=== PATIENT | female | born 1955 | race Hispanic/Latino ===

== ENCOUNTER → 2017-08-22 | Outpatient (CLI) | payer OTHER, MEDICARE ==
[~2017-08-22] MED LIST: ACET-2247 PO; AEC81 PO; ATOR20TA PO; CETI1TAB PO; CINA30 PO; DOCU-116 PO; ESOM20CA39 PO; FOLI0.8T22 PO; GLIP5TAB11 PO; LIDO30CR TP; METO-391 PO; SEVE800T7 PO
[2017-08-22 11:24] LABS: HEMOGLOBIN A1C 6.7 % (4.0-6.0)
[2017-08-22 11:38] LABS: ALBUMIN 3.6 g/dL (3.5-5.0); BILIRUBIN,TOTAL 0.7 mg/dL (0.2-1.0); POTASSIUM 5.1 mmol/L (3.5-5.1); THYROID STIMULATING HORMONE 10.98 uIU/mL (0.36-3.74); TOTAL PROTEIN, SERUM 9.1 g/dL (6.0-8.3)
== END | disposition home or self-care (01) ==
LOC: LAB 10:44
PROVIDERS: ATTEND Student in an Organized Health Care Education/Training Program
DX: I13.11 Hypertensive heart and chronic kidney disease without heart failure, with stage 5 chronic kidney disease, or end stage renal disease (principal); N18.9 Chronic kidney disease, unspecified; I50.9 Heart failure, unspecified; E03.9 Hypothyroidism, unspecified; E66.9 Obesity, unspecified; R79.89 Other specified abnormal findings of blood chemistry
CPT/HCPCS: 36415; 80053; 80061; 83036; 84443

== ENCOUNTER → 2018-02-01 | Outpatient (CLI) | payer OTHER ==
[~2018-02-01] VITALS: Ht 157.5 cm; Wt 79.8 kg
[~2018-02-01] MED LIST changes: +REGADENOSON 0.4 MG/5 ML PF SYG IVP SCH
== END | disposition home or self-care (01) ==
LOC: SHCH 08:41
PROVIDERS: ATTEND Internal Medicine Cardiovascular Disease
DX: I45.10 Unspecified right bundle-branch block (principal); I20.9 Angina pectoris, unspecified
CPT/HCPCS: 78452; 93017; 96374; A9500 ×2; J2785

== ENCOUNTER 2018-04-10 05:41 | Day surgery (SDC) | payer OTHER ==
[2018-04-06 17:09] VITALS: BP 141/65
[2018-04-06 17:16] LABS: BASOPHILS % (AUTO) 0.9 % (0.0-5.0); EOSINOPHILS % (AUTO) 2.9 % (0.0-8.0); HEMATOCRIT 29.7 % (36-48); LYMPHOCYTES % (AUTO) 16.2 % (21.0-51.0); MEAN CORPUSCULAR HEMOGLOBIN 30.8 pg (27.0-33.0); MEAN CORPUSCULAR HGB CONC 33.7 g/dL (32.0-36.0); MEAN CORPUSCULAR VOLUME 91.1 fL (79-99); MONOCYTES % (AUTO) 9.2 % (3.0-13.0); NEUTROPHILS % (AUTO) 70.8 % (40.0-77.0); PLATELET COUNT (AUTO) 114 K/uL (130-400); RED BLOOD CELL COUNT(AUTO) 3.26 MIL/uL (4.00-5.50); RED CELL DISTRIBUTION WIDTH 16.4 % (11.0-15.5); WHITE BLOOD COUNT (AUTO) 4.4 K/uL (4.8-10.8)
[2018-04-06 17:25] LABS: CREATININE 3.5 mg/dL (0.5-1.5); POTASSIUM 3.8 mmol/L (3.5-5.1)
[2018-04-06 17:28] LABS: INR 1.06 (0.85-1.15); PARTIAL THROMBOPLASTIN TIME 29.4 SEC (26.3-35.5); PROTHROMBIN TIME 11.1 SEC (9.6-11.6)
[~2018-04-10] VITALS: Ht 152.4 cm; Wt 79.6 kg
[2018-04-10] VITALS (10 sets, daily range): BP systolic 102–141; BP diastolic 51–74
[~2018-04-10 05:41] MED LIST changes: -ACET-2247 PO; +ATOR10TA69 PO; -ATOR20TA PO; +CALC-866 PO; -CETI1TAB PO; -DOCU-116 PO; -ESOM20CA39 PO; -FOLI0.8T22 PO; +FOLI1TAB85 PO; +ISOS60TA4 PO; +LEVO25TA54 PO; -LIDO30CR TP; -METO-391 PO; +METO25TA6 PO; +NITR4.9S5 TL; -REGADENOSON 0.4 MG/5 ML PF SYG IVP SCH
[2018-04-10] MEDS ORDERED: SODIUM CHLORIDE 0.9% 1000ML 1,000 ML IV ONE (06:24)
[2018-04-10] MEDS ORDERED: NITROGLYCERIN 5 MG/ML 10 ML VIAL IV ONE (07:28)
[2018-04-10] MEDS ORDERED: LIDOCAINE HCL 2% 20ML ONE (07:29)
[2018-04-10] MEDS ORDERED: IOHEXOL 350 MG/ML 100ML INFUS..BTL IV ONE (07:29)
[2018-04-10] MEDS ORDERED: SODIUM CHLORIDE 0.9% 1000ML 1,000 ML IV SCH (08:00)
[2018-04-10] MEDS ORDERED: MIDAZOLAM HCL 1 MG/ML 2ML VIAL ONE (08:16)
[2018-04-10] MEDS ORDERED: GLUCAGON 1MG KIT 1 MG ML IM PRN (09:00)
[2018-04-10] MEDS ORDERED: SODIUM CHLORIDE 0.9% 10 ML VIAL IVP SCH (09:00)
[2018-04-10] MEDS ORDERED: DEXTROSE 50%-WATER 50 ML DISP.SYRIN IV PRN (09:00)
[2018-04-10] MEDS ORDERED: INSULIN HUMULIN R 100 UNIT/ML 3ML SQ SCH (11:30)
== END 2018-04-10 13:45 | disposition home or self-care (01) ==
LOC: DAH 05:41
PROVIDERS: ATTEND Internal Medicine Cardiovascular Disease
DX: I25.10 Atherosclerotic heart disease of native coronary artery without angina pectoris (principal); I25.5 Ischemic cardiomyopathy; I21.3 ST elevation (STEMI) myocardial infarction of unspecified site; I34.0 Nonrheumatic mitral (valve) insufficiency; Z79.899 Other long term (current) drug therapy; I77.1 Stricture of artery; E11.22 Type 2 diabetes mellitus with diabetic chronic kidney disease; N18.6 End stage renal disease; Z99.2 Dependence on renal dialysis; R06.00 Dyspnea, unspecified; Z95.5 Presence of coronary angioplasty implant and graft; Z68.32 Body mass index [BMI] 32.0-32.9, adult; Z98.890 Other specified postprocedural states; E66.9 Obesity, unspecified; I10 Essential (primary) hypertension; I45.2 Bifascicular block; E11.59 Type 2 diabetes mellitus with other circulatory complications; R94.39 Abnormal result of other cardiovascular function study
CPT/HCPCS: 36415; 71045; 75625; 80048; 82948 ×2; 85025; 85610; 85730; 93005; 93458; A4606; C1760; C1894; J1644; J2250; J3490 ×2; J7030; Q9965 ×2; Q9967; 99156; 99157

== ENCOUNTER 2018-05-16 23:15 | Emergency (ER) | payer OTHER ==
[~2018-05-16 23:15] MED LIST changes: -METO25TA6 PO
[2018-05-17] LABS: BASOPHILS % (AUTO) 1.3 % (0.0-5.0); EOSINOPHILS % (AUTO) 3.3 % (0.0-8.0); HEMATOCRIT 30.6 % (36-48); LYMPHOCYTES % (AUTO) 16.7 % (21.0-51.0); MEAN CORPUSCULAR HEMOGLOBIN 31.5 pg (27.0-33.0); MEAN CORPUSCULAR HGB CONC 33.7 g/dL (32.0-36.0); MEAN CORPUSCULAR VOLUME 93.4 fL (79-99); MONOCYTES % (AUTO) 8.7 % (3.0-13.0); NUCLEATED RED BLOOD CELLS 0.1 % (0.0-0.19); PLATELET COUNT (AUTO) 107 K/uL (130-400); RED BLOOD CELL COUNT(AUTO) 3.27 MIL/uL (4.00-5.50); RED CELL DISTRIBUTION WIDTH 16.3 % (11.0-15.5); WHITE BLOOD COUNT (AUTO) 3.6 K/uL (4.8-10.8)
[2018-05-17 00:12] LABS: INR 1.04 (0.85-1.15); PARTIAL THROMBOPLASTIN TIME 27.1 SEC (26.3-35.5); PROTHROMBIN TIME 10.9 SEC (9.6-11.6)
[2018-05-17 01:16] LABS: ALBUMIN 3.6 g/dL (3.5-5.0); BILIRUBIN,TOTAL 0.7 mg/dL (0.2-1.0); CREATININE 4.4 mg/dL (0.5-1.5); POTASSIUM 3.6 mmol/L (3.5-5.1); TOTAL PROTEIN, SERUM 8.9 g/dL (6.0-8.3)
[2018-05-17] MEDS ORDERED: OCTYL 2-CYANOACRYLATE 1 EACH TP ONE ×2 (01:34→01:40)
== END 2018-05-17 02:47 | disposition home or self-care (01) ==
LOC: EDH 23:15
DX: T82.838A Hemorrhage due to vascular prosthetic devices, implants and grafts, initial encounter (principal); I12.0 Hypertensive chronic kidney disease with stage 5 chronic kidney disease or end stage renal disease; N18.6 End stage renal disease; E78.5 Hyperlipidemia, unspecified; I25.10 Atherosclerotic heart disease of native coronary artery without angina pectoris; Z99.2 Dependence on renal dialysis
CPT/HCPCS: 36415; 80053; 85025; 85610; 85730

== ENCOUNTER 2018-11-09 14:48 | Inpatient (IN) | payer MEDICARE, OTHER ==
[~2018-11-09] VITALS: Ht 154.9 cm; Wt 93.7 kg
[~2018-11-09 14:48] MED LIST changes: +HEPARIN SODIUM 1000UNIT/ML 10ML VIAL IV ONE
[2018-11-09] MEDS ORDERED: NITROGLYCERIN 1GM/1 INCH PACKET TD ONE (14:59)
[2018-11-09 15:10] LABS: BASOPHILS % (AUTO) 1.3 % (0.0-5.0); EOSINOPHILS % (AUTO) 3.2 % (0.0-8.0); HEMATOCRIT 29.8 % (36-48); LYMPHOCYTES % (AUTO) 9.6 % (21.0-51.0); MEAN CORPUSCULAR HEMOGLOBIN 30.2 pg (27.0-33.0); MEAN CORPUSCULAR HGB CONC 33.5 g/dL (32.0-36.0); MEAN CORPUSCULAR VOLUME 90.1 fL (79-99); MONOCYTES % (AUTO) 9.1 % (3.0-13.0); NEUTROPHILS % (AUTO) 76.8 % (40.0-77.0); PLATELET COUNT (AUTO) 108 K/uL (130-400); RED BLOOD CELL COUNT(AUTO) 3.31 MIL/uL (4.00-5.50); RED CELL DISTRIBUTION WIDTH 16.6 % (11.0-15.5); WHITE BLOOD COUNT (AUTO) 4.7 K/uL (4.8-10.8)
[2018-11-09 15:23] LABS: INR 1.11 (0.85-1.15); PARTIAL THROMBOPLASTIN TIME 29.4 SEC (26.3-35.5); PROTHROMBIN TIME 11.6 SEC (9.6-11.6)
[2018-11-09 15:27] LABS: CREATININE 6.7 mg/dL (0.5-1.5); POTASSIUM 4.3 mmol/L (3.5-5.1)
[2018-11-09 15:31] LABS: ALBUMIN 3.3 g/dL (3.5-5.0); BILIRUBIN,TOTAL 0.8 mg/dL (0.2-1.0); TOTAL PROTEIN, SERUM 8.1 g/dL (6.0-8.3)
[2018-11-09 15:39] LABS: B-TYPE NATRIURETIC PEPTIDE 1600 pg/mL (0-100)
[2018-11-09] MEDS ORDERED: HEPARIN SODIUM 5000UNIT/ML 1ML VIAL ONE (18:21)
[2018-11-09] MEDS ORDERED: HEPARIN 25000 UNITS/250 ML D5W 250 ML IV ONE (18:21)
[2018-11-09] MEDS ORDERED: ACETAMINOPHEN 325 MG TAB PO PRN (19:00)
[2018-11-09] MEDS ORDERED: ONDANSETRON HCL 4 MG/2 ML VIAL IV PRN (19:00)
[2018-11-09] MEDS ORDERED: MORPHINE SULFATE 2 MG/ML 1ML SYG IV PRN (19:00)
[2018-11-09] MEDS ORDERED: NITROGLYCERIN 0.4 MG SL TAB SL PRN (19:00)
[2018-11-09 20:49] LABS: CHOLESTEROL 108 mg/dL (<200); HDL CHOLESTEROL 51 mg/dL (35-85); LDL DIRECT 48 mg/dL (0-99); TRIGLYCERIDES 95 mg/dL (30-200)
[2018-11-09 20:51] LABS: HEMOGLOBIN A1C 6.7 % (4.0-6.0)
[2018-11-09] MEDS ORDERED: ATORVASTATIN CALCIUM 20 MG TABLET PO SCH (21:00)
[2018-11-09 23:00] VITALS: BP 129/60
[2018-11-10] MEDS ORDERED: ACET-66 PO (00:26)
[2018-11-10] MEDS ORDERED: CARV6.25 PO (00:26)
[2018-11-10] MEDS ORDERED: OLME20TA22 PO (00:26)
[2018-11-10] MEDS ORDERED: CETI-101 PO (00:26)
[2018-11-10 01:23] LABS: INR 1.13 (0.85-1.15); PROTHROMBIN TIME 11.8 SEC (9.6-11.6)
[2018-11-10] MEDS: METOPROLOL TARTRATE 25 MG TAB PO SCH ×2 (01:52→07:55)
[2018-11-10] MEDS ORDERED: HEPARIN SODIUM 5000UNIT/ML 1ML VIAL ONE (02:31)
[2018-11-10 03:00] VITALS: BP 115/63
[2018-11-10 07:53] VITALS: BP 130/59
[2018-11-10] MEDS: FAMOTIDINE/PF 20 MG/2 ML VIAL IV SCH (08:00)
[2018-11-10] MEDS ORDERED: ASPIRIN 325MG EC TAB 325 MG TABLET.DR PO SCH (09:00)
[2018-11-10 11:53] VITALS: BP 137/68
[2018-11-10] MEDS ORDERED: NITROGLYCERIN 4.1 GM SPRAY TL PRN (12:15)
[2018-11-10] MEDS ORDERED: NON-FORMULARY MEDICATION 1 EACH (Cetirizine HCl (Zyrtec) 10 MG) PO PRN (12:15)
[2018-11-10] MEDS ORDERED: ACETAMINOPHEN EXTRA STRENGTH 500 MG TABLET PO SCH (12:45)
--- NOTE | 2018-11-10 14:05 | NUR ---
DR. Dontae MOTLEY IN ROOM WITH PT. FOR CONSULT; PT.'S SON AT BEDSIDE.
[2018-11-10] MEDS ORDERED: PHARMACY COMMUNICATION MISC SCH (14:30)
--- NOTE | 2018-11-10 15:00 | NUR ---
PT. WITH PERSISTENT BLEEDING NOTED TO LEFT HAND SCAB AREA. PRESSURE APPLIED AND SECURED WITH ELASTOPLAST DUE TO HEPARIN INFUSION. NO FURTHER BLEEDING NOTED. PT.'S SON AT BEDSIDE. CALL LIGHT WITHIN REACH, VERBALIZED ABILITY TO USE.
[2018-11-10 15:17] VITALS: BP 124/46
[2018-11-10] MEDS: EPTIFIBATIDE 75MG/100ML BOTTLE 100 ML IV SCH (15:54)
[2018-11-10] MEDS: ASPIRIN 81 MG EC TAB PO SCH (16:11)
[2018-11-10] MEDS ORDERED: ACETAMINOPHEN EXTRA STRENGTH 500 MG TABLET PO PRN (16:15)
--- NOTE | 2018-11-10 16:28 | NUR ---
cm note met with patient and states resides at home with spouse, is independent with ambulation, but uses cane and walker occasionally as needed. no provider. pt goes to [facility]- dr hughes and spouse transports. pt states dc plan is back to same home setting. provided with [facility] agency on aging info, per pt requested some information on possible provider assists, states she will call AAA as needed. no dc needs at present, feels safe to return home. Addendum: 11/10/18 at 1631 by VLADIMIR CAMPUZANO CM Amended: Links added.
[2018-11-10] MEDS: CINACALCET HCL 30 MG TAB PO SCH (16:38)
[2018-11-10] MEDS: SEVELAMER HCL 800 MG TABLET PO SCH (16:39)
[2018-11-10] MEDS ORDERED: LOSARTAN 100 MG TABLET PO SCH (17:00)
[2018-11-10] MEDS ORDERED: CARVEDILOL 6.25 MG TABLET PO SCH (17:00)
--- NOTE | 2018-11-10 17:38 | NUR ---
NOTIFIED DR. Dontae MOTLEY VIA TELEPHONE RE:PREVIOUS EPISODE OF BLEEDING TO LEFT HAND; VERBALIZED UNDERSTANDING NO NEW ORDERS RECEIVED. STATES TO CONTINUE WITH HEPARIN AND INTEGRILIN PREVIOUSLY ORDERED.
[2018-11-10 20:00] VITALS: BP 128/87
[2018-11-10] MEDS: CHOLECALCIFEROL PO SCH (21:00)
[2018-11-10] MEDS: ATORVASTATIN CALCIUM 10 MG TABLET PO SCH (21:43)
[2018-11-10] MEDS: CARVEDILOL 12.5 MG TABLET PO SCH (21:43)
[2018-11-11] VITALS: BP 110/48
[2018-11-11] MEDS ORDERED: HEPARIN 25000 UNITS/250 ML D5W 250 ML IV ONE (03:47)
[2018-11-11 04:00] VITALS: BP 107/56
[2018-11-11] MEDS: EPTIFIBATIDE 75MG/100ML BOTTLE 100 ML IV SCH ×2 (04:11→22:56)
[2018-11-11 04:37] LABS: HEMATOCRIT 28.4 % (36-48); MEAN CORPUSCULAR HEMOGLOBIN 30.6 pg (27.0-33.0); MEAN CORPUSCULAR HGB CONC 33.7 g/dL (32.0-36.0); PLATELET COUNT (AUTO) 119 K/uL (130-400); RED BLOOD CELL COUNT(AUTO) 3.12 MIL/uL (4.00-5.50); RED CELL DISTRIBUTION WIDTH 16.8 % (11.0-15.5); WHITE BLOOD COUNT (AUTO) 4.3 K/uL (4.8-10.8)
[2018-11-11 05:10] LABS: PHOSPHORUS 8.6 mg/dL (2.5-4.9); POTASSIUM 4.9 mmol/L (3.5-5.1); THYROID STIMULATING HORMONE 13.78 uIU/mL (0.36-3.74)
[2018-11-11 05:12] LABS: CREATININE 8.6 mg/dL (0.5-1.5)
[2018-11-11] MEDS ORDERED: GLIPIZIDE 5 MG TABLET PO PRN (07:30)
[2018-11-11 08:18] VITALS: BP 100/51
[2018-11-11] MEDS: FOLIC ACID/VITAMIN B COMP W-C 1 MG CAP/TAB PO SCH (08:27)
[2018-11-11] MEDS: SEVELAMER HCL 800 MG TABLET PO SCH ×3 (08:29→16:48)
[2018-11-11] MEDS: ISOSORBIDE MONO 60 MG TAB.SR PO SCH (08:29)
[2018-11-11] MEDS: CARVEDILOL 12.5 MG TABLET PO SCH ×2 (08:29→21:09)
[2018-11-11] MEDS: LOSARTAN 100 MG TABLET PO SCH (08:29)
[2018-11-11] MEDS: FAMOTIDINE/PF 20 MG/2 ML VIAL IV SCH (08:30)
[2018-11-11] MEDS ORDERED: CETIRIZINE HCL 5 MG TABLET PO PRN (09:00)
[2018-11-11] MEDS ORDERED: LEVOTHYROXINE 25 MCG TABLET PO SCH (09:00)
[2018-11-11 12:03] VITALS: BP 113/55
[2018-11-11 15:41] VITALS: BP 120/58
--- NOTE | 2018-11-11 15:43 | NUR ---
DR. HERNANDEZ IN ROOM SPEAKING WITH PT. RE:PLAN OF CARE.
[2018-11-11] MEDS: ASPIRIN 81 MG EC TAB PO SCH (16:48)
[2018-11-11] MEDS: CINACALCET HCL 30 MG TAB PO SCH (16:48)
[2018-11-11 20:00] VITALS: BP 122/69
[2018-11-11] MEDS: CHOLECALCIFEROL PO SCH (21:00)
[2018-11-11] MEDS: ATORVASTATIN CALCIUM 10 MG TABLET PO SCH (21:08)
[2018-11-12] VITALS: BP 123/61
[2018-11-12 04:00] VITALS: BP 111/58
[2018-11-12 04:18] LABS: HEMATOCRIT 27.8 % (36-48); MEAN CORPUSCULAR HEMOGLOBIN 30.7 pg (27.0-33.0); MEAN CORPUSCULAR HGB CONC 33.9 g/dL (32.0-36.0); MEAN CORPUSCULAR VOLUME 90.5 fL (79-99); NUCLEATED RED BLOOD CELLS 0.1 % (0.0-0.19); PLATELET COUNT (AUTO) 106 K/uL (130-400); RED BLOOD CELL COUNT(AUTO) 3.07 MIL/uL (4.00-5.50); RED CELL DISTRIBUTION WIDTH 16.4 % (11.0-15.5); WHITE BLOOD COUNT (AUTO) 4.4 K/uL (4.8-10.8)
[2018-11-12 04:45] LABS: CREATININE 9.5 mg/dL (0.5-1.5)
--- NOTE | 2018-11-12 05:00 | NUR ---
HEPARIN DRIP 3000UNITS HEPARIN IV GIVEN PER PROTOCOL
[2018-11-12] MEDS ORDERED: HEPARIN SODIUM 5000UNIT/ML 1ML VIAL ONE (05:17)
[2018-11-12] MEDS: LEVOTHYROXINE 50 MCG TABLET PO SCH (05:22)
[2018-11-12 07:00] VITALS: BP 116/59
--- NOTE | 2018-11-12 08:00 | NUR ---
ASSESSMENT PT IS AAOX4 DENIES CP DENIES SOB DENIES NV NO COMPLAINTS RESTING IN BED. INTEGRILIN AND HEPARIN INFUSING ORDERED. CALL LIGHT WITHIN REACH.
[2018-11-12] MEDS: ISOSORBIDE MONO 60 MG TAB.SR PO SCH (08:24)
[2018-11-12] MEDS: LOSARTAN 100 MG TABLET PO SCH (08:24)
[2018-11-12] MEDS: FAMOTIDINE/PF 20 MG/2 ML VIAL IV SCH (08:24)
[2018-11-12] MEDS: FOLIC ACID/VITAMIN B COMP W-C 1 MG CAP/TAB PO SCH (08:24)
[2018-11-12] MEDS: SEVELAMER HCL 800 MG TABLET PO SCH ×3 (08:25→16:51)
[2018-11-12] MEDS: CARVEDILOL 12.5 MG TABLET PO SCH ×2 (08:25→21:56)
--- NOTE | 2018-11-12 09:30 | NUR ---
Vickey ARORA ROUNDED ORDERED TO STOP HEPARIN AND INTEGRILIN, DRIPS STOPPED.
[2018-11-12 11:00] VITALS: BP 99/51
--- NOTE | 2018-11-12 13:00 | NUR ---
STATUS SITTING UP IN CHAIR, PENDING DIALYSIS TODAY. DIALYSIS NURSES AWARE, ORDER RECEIVED FOR DIALYSIS TODAY.
[2018-11-12] MEDS ORDERED: PHARMACY COMMUNICATION MISC SCH (14:15)
--- NOTE | 2018-11-12 15:01 | NUR ---
RD Notification Pt admitted for chest pain. Pt Hx of ESRD on HD, DM. Pt tolerating Renal Dialysis diet at this time with no report of GI distress and PO intake at 100%. Pt reports food preferences but has no known food allergies. RD with attempt for Dialysis and Diabetes diet education, however Pt denies need for diet education and sees Dialysis diet attention regularly. Pt monitored labs: Na 131, Cl 90, BUN 59, Cr 9.5, GFR 4, Glu 125, Ca 7.9, P 8.6, Alb 3.3, A1C 6.7. RD to continue to monitor. Please notify as additional nutrition concerns arise. Thank you. Addendum: 11/12/18 at [address] Amended: Links added.
--- NOTE | 2018-11-12 15:22 | NUR ---
DIALYSIS AT BEDSIDE
[2018-11-12 16:00] VITALS: BP 113/56
[2018-11-12] MEDS ORDERED: SODIUM CHLORIDE 0.9% 1000ML 1,000 ML IV PRN (16:30)
[2018-11-12] MEDS ORDERED: ACETAMINOPHEN 325 MG TAB PO PRN (16:30)
[2018-11-12] MEDS ORDERED: 0.9% SODIUM CHLORIDE 1000 ML IV BAG IV PRN (16:30)
[2018-11-12] MEDS: CINACALCET HCL 30 MG TAB PO SCH (16:51)
[2018-11-12] MEDS: ASPIRIN 81 MG EC TAB PO SCH (16:51)
--- NOTE | 2018-11-12 18:00 | NUR ---
DIALYSIS COMPLETION PATIENT STATES SHE FEELS MINIMAL CP, GAVE NITRO SL, PLACED ON O2 2LPM. BREATHING PATTERN IS EVEN AND UNLABORED. SBP 101. HR VIA TELE SR 77.
--- NOTE | 2018-11-12 18:07 | NUR ---
CHEST PAIN RELIEVED NO COMPLAINTS
[2018-11-12 19:29] VITALS: BP 119/56
[2018-11-12] MEDS: CHOLECALCIFEROL PO SCH (21:00)
[2018-11-12] MEDS: ATORVASTATIN CALCIUM 10 MG TABLET PO SCH (21:55)
[2018-11-12] MEDS: EPOETIN ALFA 10,000 UNIT/ML VIAL SQ NR (21:56)
[2018-11-13] VITALS (12 sets, daily range): BP systolic 96–117; BP diastolic 44–61
[2018-11-13 03:58] LABS: BASOPHILS % (AUTO) 1.2 % (0.0-5.0); EOSINOPHILS % (AUTO) 4.6 % (0.0-8.0); HEMATOCRIT 26.3 % (36-48); LYMPHOCYTES % (AUTO) 14.5 % (21.0-51.0); MEAN CORPUSCULAR HEMOGLOBIN 30.1 pg (27.0-33.0); MEAN CORPUSCULAR VOLUME 91.2 fL (79-99); MONOCYTES % (AUTO) 11.6 % (3.0-13.0); NEUTROPHILS % (AUTO) 68.1 % (40.0-77.0); PLATELET COUNT (AUTO) 111 K/uL (130-400); RED BLOOD CELL COUNT(AUTO) 2.88 MIL/uL (4.00-5.50); RED CELL DISTRIBUTION WIDTH 15.8 % (11.0-15.5); WHITE BLOOD COUNT (AUTO) 4.3 K/uL (4.8-10.8)
[2018-11-13 04:09] LABS: INR 1.09 (0.85-1.15); PROTHROMBIN TIME 11.4 SEC (9.6-11.6)
[2018-11-13 04:31] LABS: ALBUMIN 2.9 g/dL (3.5-5.0); CREATININE 6.7 mg/dL (0.5-1.5); PHOSPHORUS 6.5 mg/dL (2.5-4.9); POTASSIUM 4.3 mmol/L (3.5-5.1)
--- NOTE | 2018-11-13 06:00 | NUR ---
ORDERS SPOKE TO DR Ad SCANLON AT [id number]. VERBAL ORDERS FOR [facility] FOR 0711/13/18. PATIENT HAD A 5 SECOND PAUSE DURING THE NIGHT. PATIENT DID NOT HAVE SOB OR CHEST PAIN ALONG WITH PAUSE. DID FEEL MILD WEAKNESS. WILL NOTIFY GHISLAINE BEFORE HEART CATH.
[2018-11-13] MEDS: LEVOTHYROXINE 50 MCG TABLET PO SCH (06:24)
[2018-11-13] MEDS: ISOSORBIDE MONO 60 MG TAB.SR PO SCH (07:04)
[2018-11-13] MEDS: FOLIC ACID/VITAMIN B COMP W-C 1 MG CAP/TAB PO SCH (07:04)
[2018-11-13] MEDS: LOSARTAN 100 MG TABLET PO SCH (07:04)
[2018-11-13] MEDS: CARVEDILOL 12.5 MG TABLET PO SCH ×2 (07:04→21:44)
[2018-11-13] MEDS: SEVELAMER HCL 800 MG TABLET PO SCH ×3 (07:04→16:16)
[2018-11-13] MEDS ORDERED: IOHEXOL 350 MG/ML 100ML INFUS..BTL IV ONE (07:12)
[2018-11-13] MEDS ORDERED: LIDOCAINE HCL 2% 20ML ONE (07:12)
[2018-11-13] MEDS ORDERED: NITROGLYCERIN 5 MG/ML 10 ML VIAL IV ONE (07:12)
--- NOTE | 2018-11-13 07:20 | NUR ---
ASSESSMENT PT IS AAOX4 DENIES CP DENIES SOB DENIES NV. NO COMPLAINTS, DOWN VIA BED TO [facility] WITH [employer]IP [employer]INE SUPERVISOR STAFF.
[2018-11-13] MEDS: FAMOTIDINE/PF 20 MG/2 ML VIAL IV SCH (07:32)
[2018-11-13] MEDS ORDERED: IOHEXOL-350 50ML VIAL IV ONE (07:45)
[2018-11-13] MEDS ORDERED: MIDAZOLAM HCL 1 MG/ML 2ML VIAL ONE (08:14)
[2018-11-13] MEDS ORDERED: CLOPIDOGREL BISULFATE 75 MG TAB PO SCH (09:00)
--- NOTE | 2018-11-13 09:30 | NUR ---
RETURNED FROM [facility] TO ROOM PT IS RESTING, BREATHING PATTERN IS EVEN AND UNLABORED. RIGHT GROIN SOFT DRESSING INTACT. NO VISIBLE SIGNS OF DISTRESS NOTED.
--- NOTE | 2018-11-13 13:28 | NUR ---
BEDREST COMPLETED RIGHT GROIN REMAINS CLEAN DRY AND INTACT. NO OOZING NO HEMATOMA NOTED. FAMILY IS AT BEDSIDE, CALL LIGHT WITHIN REACH.
--- NOTE | 2018-11-13 14:26 | NUR ---
PRE OP AND POST OP BOOKLETS GIVEN TO PATIENT AND SON PENDING DR NÚÑEZ TO COME ROUND AND SEE PATIENT
[2018-11-13 15:04] LABS: HEMOGLOBIN A1C 6.6 % (4.0-6.0)
[2018-11-13] MEDS: CINACALCET HCL 30 MG TAB PO SCH (16:16)
--- NOTE | 2018-11-13 17:55 | NUR ---
DR NÚÑEZ ROUNDED CABG CONSENT OBTAINED. REQUESTED DIALYSIS TREATMENT TONIGHT WITH PLAN FOR AM CABG IF OK WITH DR HERNANDEZ, DR HERNANDEZ NOTIFIED AND IS OK WITH DIALYSIS TONIGHT. DIALYSIS NURSE AWARE.
[2018-11-13] MEDS: CHOLECALCIFEROL PO SCH (21:00)
[2018-11-13] MEDS: ATORVASTATIN CALCIUM 10 MG TABLET PO SCH (21:44)
--- NOTE | 2018-11-13 22:04 | NUR ---
CALLED DR NÚÑEZ AT [phone], WAS INFORMED OF THE PATIENT'S ANTIBODIES IN BLOOD. PATIENT'S BLOOD SENT IS BEING SENT TO [place] FOR IDENTIFICATION OF ANTIBODIES. DR NÚÑEZ IS IN AGREEMENT WITH USING 0- BLOOD FOR TRANSFUSION WITHOUT IDENTIFICATION OF ANTIBODIES. SURGEON ORDERED HEMATOLOGY TO BE CONSULTED IN REGARDS TO REPERCUSSIONS OF USING O- BLOOD WITHOUT THE IDENTIFICATION OF ANTIBODIES. DR LACKEY WAS CONTACTED AT [phone] AND SITUATION WAS EXPLAINED. PATIENT ADDED TO [facility] SO MD COULD HAVE ACCESS TO PATIENT CHART. [facility] WOULD MAKE RECOMMENDATIONS ONCE CHART WAS REVIEWED. DR NÚÑEZ WAS INFORMED OF DR LACKEY'S ACTIONS. DR NÚÑEZ WAS GIVEN DR LACKEY'S PHONE NUMBER TO DISCUSS SITUATION. AWAITING RESPONSE FROM BOTH PHYSICIANS TO PROCEED WITH CABG IN AM.
--- NOTE | 2018-11-13 22:45 | NUR ---
PER SURGEON MARCO WILL NOT PROCEED WITH CABG UNTIL BLOOD RESULTS HAVE BEEN RECEIVED
[2018-11-14 01:06] VITALS: BP 96/49
[2018-11-14 04:32] LABS: HEMATOCRIT 27.7 % (36-48); MEAN CORPUSCULAR HEMOGLOBIN 30.8 pg (27.0-33.0); MEAN CORPUSCULAR HGB CONC 33.6 g/dL (32.0-36.0); MEAN CORPUSCULAR VOLUME 91.7 fL (79-99); PLATELET COUNT (AUTO) 99 K/uL (130-400); RED BLOOD CELL COUNT(AUTO) 3.02 MIL/uL (4.00-5.50); RED CELL DISTRIBUTION WIDTH 16.4 % (11.0-15.5); WHITE BLOOD COUNT (AUTO) 5.3 K/uL (4.8-10.8)
[2018-11-14 04:40] LABS: INR 1.1 (0.85-1.15); PARTIAL THROMBOPLASTIN TIME 28.5 SEC (26.3-35.5); PROTHROMBIN TIME 11.5 SEC (9.6-11.6)
[2018-11-14 04:47] VITALS: BP 94/42
[2018-11-14] MEDS: LEVOTHYROXINE 50 MCG TABLET PO SCH (06:13)
[2018-11-14 07:00] VITALS: BP 101/46
--- NOTE | 2018-11-14 07:35 | NUR ---
ASSESSMENT ENCOUNTERED PT A&OX3, CALM COOPERATIVE AND DOES NOT APPEAR TO BE IN ANY DISTRESS NOR ANY NEURO DEFICITS PRESENT. PT DENIES PAIN, SOB, NAUSEA. RT GROIN SOFT NONTENDER WITH NO OOZING OR HEMATOMA PRESENT. DP/PT PULSES PALPABLE. PT DOES HAVE REDNESS AND TENDERNESS PRESENT TO RT CALF. PT IS AMBULATORY, GAIT SLOW BUT STEADY WITH ASSIST. CALL LIGHT WITHIN REACH.
[2018-11-14] MEDS: SEVELAMER HCL 800 MG TABLET PO SCH ×3 (07:57→17:57)
[2018-11-14 08:11] LABS: HEPATITIS A ANTIBODY IGM Negative (Negative); HEPATITIS B CORE IGM Negative (Negative); HEPATITIS Bs ANTIGEN SCREEN P Negative (Negative)
[2018-11-14] MEDS: LOSARTAN 100 MG TABLET PO SCH (09:00)
[2018-11-14] MEDS: ISOSORBIDE MONO 60 MG TAB.SR PO SCH (09:00)
[2018-11-14 11:00] VITALS: BP 104/51
[2018-11-14] MEDS: LINEZOLID 600 MG/ISO-OSM 300 ML IV SCH ×2 (13:14→23:45)
[2018-11-14] MEDS: FAMOTIDINE/PF 20 MG/2 ML VIAL IV SCH (13:14)
[2018-11-14] MEDS: FOLIC ACID/VITAMIN B COMP W-C 1 MG CAP/TAB PO SCH (13:15)
[2018-11-14] MEDS: CARVEDILOL 12.5 MG TABLET PO SCH ×2 (13:16→23:44)
[2018-11-14 16:00] VITALS: BP 91/42
[2018-11-14] MEDS: ASPIRIN 81 MG EC TAB PO SCH (17:57)
[2018-11-14] MEDS: CINACALCET HCL 30 MG TAB PO SCH (17:57)
[2018-11-14 19:44] VITALS: BP 104/44
[2018-11-14] MEDS: CHOLECALCIFEROL PO SCH (21:00)
[2018-11-14] MEDS: EPOETIN ALFA 10,000 UNIT/ML VIAL SQ NR (21:00)
[2018-11-14] MEDS: ATORVASTATIN CALCIUM 10 MG TABLET PO SCH (23:44)
[2018-11-15] VITALS (7 sets, daily range): BP systolic 97–124; BP diastolic 44–60
[2018-11-15 04:29] LABS: % IRON SATURATION 24.8 % (22-44)
[2018-11-15] MEDS: LEVOTHYROXINE 50 MCG TABLET PO SCH (06:23)
[2018-11-15 07:26] LABS: HEMATOCRIT 27.1 % (36-48); MEAN CORPUSCULAR HEMOGLOBIN 30.6 pg (27.0-33.0); MEAN CORPUSCULAR HGB CONC 33.3 g/dL (32.0-36.0); MEAN CORPUSCULAR VOLUME 91.8 fL (79-99); PLATELET COUNT (AUTO) 103 K/uL (130-400); RED BLOOD CELL COUNT(AUTO) 2.95 MIL/uL (4.00-5.50); WHITE BLOOD COUNT (AUTO) 6.2 K/uL (4.8-10.8)
[2018-11-15] MEDS: SEVELAMER HCL 800 MG TABLET PO SCH ×3 (07:35→17:00)
[2018-11-15 07:36] LABS: CREATININE 6.3 mg/dL (0.5-1.5); POTASSIUM 4.4 mmol/L (3.5-5.1)
--- NOTE | 2018-11-15 07:45 | NUR ---
ASSESSMENT ENCOUNTERED PT ASLEEP BUT AROUSEABLE, A&OX3, CALM COOPERATIVE AND DOES NOT APPEAR TO BE IN ANY DISTRESS NOR ANY NEURO DEFICITS PRESENT. PT DENIES PAIN, SOB, NAUSEA. LAVA WITH BRUIT/THRILL PRESENT. RT GROIN SOFT NONTENDER WITH NO OOZING OR HEMATOMA PRESENT. DP/PT PULSES PALPABLE. PT DOES HAVE REDNESS AND TENDERNESS PRESENT TO RT CALF. PT IS AMBULATORY, GAIT SLOW BUT STEADY WITH ASSIST. CALL LIGHT WITHIN REACH.
[2018-11-15] MEDS: CARVEDILOL 12.5 MG TABLET PO SCH ×2 (09:00→22:21)
[2018-11-15] MEDS: ISOSORBIDE MONO 60 MG TAB.SR PO SCH (09:00)
[2018-11-15] MEDS: LOSARTAN 100 MG TABLET PO SCH (09:00)
[2018-11-15] MEDS ORDERED: ASCORBIC ACID 500 MG TAB PO SCH (09:55)
[2018-11-15] MEDS ORDERED: COMPOUND IV MISC 1 EACH IVSOLN MISC PRN (10:00)
[2018-11-15] MEDS: FOLIC ACID/VITAMIN B COMP W-C 1 MG CAP/TAB PO SCH (10:40)
[2018-11-15] MEDS: IRON SUCROSE COMPLEX 100 MG in SODIUM CHLORIDE 0.9% 50 ML IV SCH (10:40)
[2018-11-15] MEDS: FAMOTIDINE/PF 20 MG/2 ML VIAL IV SCH (10:41)
[2018-11-15] MEDS: ASPIRIN 81 MG EC TAB PO SCH (10:41)
[2018-11-15] MEDS: LINEZOLID 600 MG/ISO-OSM 300 ML IV SCH ×2 (12:05→22:20)
[2018-11-15] MEDS ORDERED: PHARMACY COMMUNICATION MISC SCH (13:00)
[2018-11-15] MEDS: CHOLECALCIFEROL PO SCH (21:00)
[2018-11-15] MEDS: CINACALCET HCL 30 MG TAB PO SCH (22:20)
[2018-11-15] MEDS: DEXAMETHASONE 10MG/ML 1ML VIAL 40 MG in SODIUM CHLORIDE 0.9% 50 ML IV SCH (22:20)
[2018-11-15] MEDS: ATORVASTATIN CALCIUM 10 MG TABLET PO SCH (22:21)
[2018-11-16] VITALS (29 sets, daily range): BP systolic 81–178; BP diastolic 32–85
[2018-11-16 04:21] LABS: HEMATOCRIT 30.9 % (36-48); MEAN CORPUSCULAR HEMOGLOBIN 30.7 pg (27.0-33.0); MEAN CORPUSCULAR HGB CONC 33.4 g/dL (32.0-36.0); MEAN CORPUSCULAR VOLUME 91.9 fL (79-99); PLATELET COUNT (AUTO) 102 K/uL (130-400); RED BLOOD CELL COUNT(AUTO) 3.36 MIL/uL (4.00-5.50); RED CELL DISTRIBUTION WIDTH 16.9 % (11.0-15.5); WHITE BLOOD COUNT (AUTO) 6.2 K/uL (4.8-10.8)
[2018-11-16 04:34] LABS: ALBUMIN 3.2 g/dL (3.5-5.0); BILIRUBIN,TOTAL 0.7 mg/dL (0.2-1.0); CREATININE 4.9 mg/dL (0.5-1.5); PHOSPHORUS 4.3 mg/dL (2.5-4.9); POTASSIUM 4.6 mmol/L (3.5-5.1); TOTAL PROTEIN, SERUM 7.9 g/dL (6.0-8.3)
[2018-11-16] MEDS: LEVOTHYROXINE 50 MCG TABLET PO SCH (06:29)
[2018-11-16] MEDS: CARVEDILOL 12.5 MG TABLET PO SCH (07:22)
[2018-11-16] MEDS ORDERED: NITROGLYCERIN 50 MG/D5% WATER 1 BOT ONE (07:27)
[2018-11-16] MEDS: CEFAZOLIN SODIUM 1 GM VIAL IVP PRN ×2 (07:44→08:40)
[2018-11-16] MEDS: SEVELAMER HCL 800 MG TABLET PO SCH ×3 (08:00→14:28)
[2018-11-16] MEDS ORDERED: DEXAMETHASONE SOD PHOSPHATE 10MG/ML 1ML VIAL ONE (08:37)
[2018-11-16] MEDS ORDERED: LIDOCAINE PF 2% 5ML ABBOJECT ONE ×2 (08:37→08:41)
[2018-11-16] MEDS ORDERED: SUCCINYLCHOLINE 200MG/10ML SYR ONE (08:38)
[2018-11-16] MEDS ORDERED: ONDANSETRON HCL 4 MG/2 ML VIAL ONE (08:38)
[2018-11-16] MEDS ORDERED: MIDAZOLAM HCL 1 MG/ML 2ML VIAL ONE (08:38)
[2018-11-16] MEDS ORDERED: GLYCOPYRROLATE 1 MG/5 ML SYRINGE ONE (08:38)
[2018-11-16] MEDS ORDERED: PROPOFOL 10 MG/ML 20ML VIAL IV ONE ×2 (08:38→08:41)
[2018-11-16] MEDS ORDERED: NEOSTIGMINE 5MG/5ML SYR IV ONE (08:38)
[2018-11-16] MEDS ORDERED: FENTANYL CITRATE PF 50 MCG/1 ML 2ML VIAL ONE (08:39)
[2018-11-16] MEDS ORDERED: ROCURONIUM 10MG/1ML SYR 10 MG/ML ML ONE ×2 (08:39→08:42)
[2018-11-16] MEDS ORDERED: SODIUM BICARB 50MEQ 50ML VIAL ONE (08:41)
[2018-11-16] MEDS ORDERED: AMINOCAPROIC ACID 250 MG/ML 20 ML VIAL IV ONE (08:41)
[2018-11-16] MEDS ORDERED: NOREPINEPHRINE BITARTRATE 1 MG/1 ML ML IV ONE (08:41)
[2018-11-16] MEDS ORDERED: PROTAMINE SULFATE 10 MG/ML 25ML VIAL IV ONE (08:41)
[2018-11-16] MEDS ORDERED: ESMOLOL HCL 10 MG/ML 10 ML VIAL ONE (08:41)
[2018-11-16] MEDS ORDERED: HEPARIN SODIUM 1000UNIT/ML 10ML VIAL ONE (08:41)
[2018-11-16] MEDS ORDERED: EPINEPHRINE 1 MG/ML AMPULE ONE (08:41)
[2018-11-16] MEDS ORDERED: FENTANYL CITRATE PF 50 MCG/1 ML 20ML VIAL IJ ONE (08:42)
[2018-11-16] MEDS: FAMOTIDINE/PF 20 MG/2 ML VIAL IV SCH (09:00)
[2018-11-16] MEDS: IRON SUCROSE COMPLEX 100 MG in SODIUM CHLORIDE 0.9% 50 ML IV SCH (09:00)
[2018-11-16] MEDS: FOLIC ACID/VITAMIN B COMP W-C 1 MG CAP/TAB PO SCH (09:00)
[2018-11-16] MEDS: ASPIRIN 81 MG EC TAB PO SCH (09:00)
[2018-11-16 09:26] LABS: ABG BASE EXCESS 0.4 mmol/L (-2.0-3.0); ABG OXYGEN SATURATION 99.5 % (95.0-99.0); ABG PCO2 30 mmHg (32-45)
[2018-11-16] MEDS ORDERED: PAPAVERINE HCL 30 MG/ML 2ML VIAL ONE (09:28)
[2018-11-16] MEDS ORDERED: BACITRACIN 50,000 UNIT VIAL ONE (09:28)
[2018-11-16] MEDS ORDERED: AMIODARONE HCL 50 MG/ML 3 ML VIAL ONE (10:03)
[2018-11-16] MEDS: LINEZOLID 600 MG/ISO-OSM 300 ML IV SCH ×2 (11:15→22:41)
[2018-11-16 11:25] LABS: ABG BASE EXCESS 1.8 mmol/L (-2.0-3.0); ABG HCO3 24.4 mmol/L (21.0-28.0); ABG OXYGEN SATURATION 99.2 % (95.0-99.0); ABG PCO2 31 mmHg (32-45)
[2018-11-16] MEDS ORDERED: CEFAZOLIN SODIUM 1 GM VIAL ONE (12:21)
[2018-11-16 12:27] LABS: ABG BASE EXCESS 0.4 mmol/L (-2.0-3.0); ABG HCO3 22.2 mmol/L (21.0-28.0); ABG OXYGEN SATURATION 99.2 % (95.0-99.0); ABG PCO2 26 mmHg (32-45)
[2018-11-16] MEDS ORDERED: SODIUM CHLORIDE 0.9% 500ML 500 ML IV SCH (12:29)
[2018-11-16] MEDS ORDERED: MORPHINE SULFATE 2 MG/ML 1ML SYG IV PRN (12:30)
[2018-11-16] MEDS ORDERED: AMINOCAPROIC ACID 15,000 MG in SODIUM CHLORIDE 0.9% 250 ML IV SCH (12:30)
[2018-11-16] MEDS ORDERED: ALBUMIN (HUMAN) 5% 250 ML IV PRN (12:30)
[2018-11-16] MEDS ORDERED: SODIUM BICARB 50MEQ 50ML VIAL IV PRN (12:30)
[2018-11-16] MEDS ORDERED: ONDANSETRON HCL 4 MG/2 ML VIAL IV PRN (12:30)
[2018-11-16] MEDS ORDERED: NOREPINEPHRINE 4MG/NS 250ML 250 ML IV PRN (12:30)
[2018-11-16] MEDS ORDERED: EPINEPHRINE 2 MG in DEXTROSE 5%-WATER 250 ML IV PRN (12:30)
[2018-11-16] MEDS ORDERED: ACETAMINOPHEN 325 MG TAB PO PRN (12:30)
[2018-11-16] MEDS ORDERED: DEXTROSE 50%-WATER 50 ML DISP.SYRIN IV PRN (12:30)
[2018-11-16] MEDS ORDERED: GLUCAGON 1MG KIT 1 MG ML IM PRN (12:30)
[2018-11-16] MEDS ORDERED: POTASSIUM PHOS 15 mMOL+NS250ML 250 ML IV PRN (12:30)
[2018-11-16] MEDS ORDERED: ACETAMINOPHEN 650 MG SUPPOSITORY RC PRN (12:30)
[2018-11-16] MEDS ORDERED: MAGNESIUM 2GM PREMIX 50ML 50 ML IV PRN (12:30)
[2018-11-16] MEDS ORDERED: SODIUM CHLORIDE 0.9% 1000ML 1,000 ML IV SCH (12:30)
[2018-11-16] MEDS ORDERED: SODIUM CHLORIDE 0.9% 250 ML IV PRN (12:30)
[2018-11-16] MEDS ORDERED: SODIUM CHLORIDE 0.9% 10 ML VIAL IVP PRN (12:30)
[2018-11-16] MEDS ORDERED: MORPHINE SULFATE 4 MG/1ML SYG IV PRN (12:30)
[2018-11-16] MEDS ORDERED: PROPOFOL 1000 MG/100 ML 100 ML IV PRN (12:30)
[2018-11-16] MEDS ORDERED: NITROGLYCERIN 50 MG/D5% WATER 250 BOT IV SCH (12:30)
[2018-11-16] MEDS ORDERED: INSULIN REGULAR, HUMAN 3ML 100 UNIT in SODIUM CHLORIDE 0.9% 99 ML IV SCH ×2 (12:30)
[2018-11-16] MEDS ORDERED: POTASSIUM CHLORIDE 20MEQ/100ML 100 ML IV PRN (12:30)
--- NOTE | 2018-11-16 12:54 | NUR ---
PT WAS ADMITTED TO ROOM 213 AFTER CABG X 4, PER DR. NÚÑEZ AND DR. Loaiza ANESTHESIA. SURGERY STAFF HERE AND PT SHOWING SINUS BRADYCARDIA AND B/P WITHIN PARAMETERS WITH LEVO AND EPI DRIPS. PT WAS CONNECTED TO VENTILATOR PRESCRIBED AND TOLERATING THE ET TUBE AT PRESENT.
[2018-11-16] MEDS: DEXAMETHASONE 10MG/ML 1ML VIAL 40 MG in SODIUM CHLORIDE 0.9% 50 ML IV SCH (13:11)
[2018-11-16 13:23] LABS: ABG BASE EXCESS 0.9 mmol/L (-2.0-3.0); ABG HCO3 23.9 mmol/L (21.0-28.0); ABG OXYGEN SATURATION 97.4 % (95.0-99.0); ABG PCO2 32 mmHg (32-45)
[2018-11-16 13:32] LABS: HEMATOCRIT 26.6 % (36-48); MEAN CORPUSCULAR HEMOGLOBIN 30.4 pg (27.0-33.0); MEAN CORPUSCULAR HGB CONC 33.1 g/dL (32.0-36.0); MEAN CORPUSCULAR VOLUME 91.8 fL (79-99); PLATELET COUNT (AUTO) 127 K/uL (130-400); RED CELL DISTRIBUTION WIDTH 16.7 % (11.0-15.5)
[2018-11-16 13:45] LABS: INR 1.41 (0.85-1.15); PARTIAL THROMBOPLASTIN TIME 27.2 SEC (26.3-35.5); PROTHROMBIN TIME 14.7 SEC (9.6-11.6)
--- NOTE | 2018-11-16 13:45 | NUR ---
SPOKE WITH FAMILY MEMBERS IN PREFERRED LANGUAGE OF URDU AND GAVE UPDATE ON THE PATIENT'S PRESENT STATUS AND EXPECTED OUTCOMES WITH HER WAKING UP AND WEANING OFF VENTILATOR. FAMILY MEMBERS WERE ALLOWED TO ASK QUESTIONS AND WERE ANSWERED TO THEIR SATISFACTION.
[2018-11-16 13:56] LABS: MAGNESIUM 1.7 mg/dL (1.80-2.40); POTASSIUM 5.2 mmol/L (3.5-5.1)
--- NOTE | 2018-11-16 14:00 | NUR ---
PT'S LEFT HAND NOTED TO HAVE DARKER SKIN TONE THAN THE REST OF THE ARM, THE POSTERIOR AREA OF THE ARM HAS AN AREA THAT IS SIMILAR TO VARICOSE VEINS. PICTURES WERE OBTAINED AND DIRECTOR ADVISED.
[2018-11-16] MEDS: CINACALCET HCL 30 MG TAB PO SCH (14:27)
--- NOTE | 2018-11-16 14:35 | NUR ---
DISCUSSED REPLACING CA AND MAG WITH DR. HERNANDEZ AND HE SAID TO HOLD FOR NOW AND TO REPLACE ONLY IF PT WOULD HAVE ARRHYTHMIAS TO MONITOR INTAKE OF FLUIDS CAREFULLY. ORDERED LAB FOR AM BUT HAD ALREADY BEEN ORDERED BY DR. NÚÑEZ.
[2018-11-16 14:39] LABS: ABG BASE EXCESS 0.3 mmol/L (-2.0-3.0); ABG HCO3 22.3 mmol/L (21.0-28.0); ABG OXYGEN SATURATION 98.7 % (95.0-99.0); ABG PCO2 29 mmHg (32-45)
--- NOTE | 2018-11-16 15:25 | NUR ---
DR. ROSALES HERE AND ASSESSED PT AND NO FURTHER ORDERS NOTED.
--- NOTE | 2018-11-16 15:30 | NUR ---
PT'S NAME IS CALLED OUT TO PATIENT AND PT WILL OPEN HER EYES AND NOD YES OR NO APPROPRIATELY, YET WILL NOT FOLLOW ANY COMMANDS YET.
[2018-11-16 17:12] LABS: ABG BASE EXCESS 0.3 mmol/L (-2.0-3.0); ABG HCO3 24.3 mmol/L (21.0-28.0); ABG OXYGEN SATURATION 98.7 % (95.0-99.0); ABG PCO2 38 mmHg (32-45)
[2018-11-16] MEDS: CEFAZOLIN SODIUM 1 GM VIAL IV SCH (17:56)
[2018-11-16] MEDS ORDERED: PHARMACY COMMUNICATION MISC SCH (19:15)
[2018-11-16] MEDS: ATORVASTATIN CALCIUM 10 MG TABLET PO SCH (19:21)
[2018-11-16] MEDS ORDERED: SODIUM CHLORIDE IV PRN ×2 (19:30)
[2018-11-16] MEDS ORDERED: NOREPINEPHRINE BITARTRATE 8 MG in SODIUM CHLORIDE 0.9% 250 ML IV PRN (19:30)
[2018-11-16] MEDS ORDERED: EPINEPHRINE IV PRN ×2 (19:30)
[2018-11-16] MEDS: CALCIUM GLUCONATE 1 GM in SODIUM CHLORIDE 0.9% 50 ML IV PRN (20:40)
[2018-11-16] MEDS: EPOETIN ALFA 10,000 UNIT/ML VIAL SQ NR (20:45)
[2018-11-16 20:50] LABS: ABG BASE EXCESS -0.1 mmol/L (-2.0-3.0); ABG HCO3 24.2 mmol/L (21.0-28.0); ABG OXYGEN SATURATION 98.7 % (95.0-99.0); ABG PCO2 38 mmHg (32-45)
--- NOTE | 2018-11-16 23:00 | NUR ---
EXTUBATION PT TOLERATED WEANING WELL ABG WAS WITHIN PARAMETERS AND WEANING PARAMETERS WERE OBTAINED. PT WAS ABLE TO ACHIEVE 1038 VC, AND -28 NIF. PT ENCOURAGED TO TAKE SLOW DEEP BREATHS AND GIVEN SPLINTING PEOPLE FOR WHEN NEED OF COUGHING ARISES. WILL CONTINUE TO MONITOR.
[2018-11-17] VITALS (49 sets, daily range): BP systolic 82–161; BP diastolic 29–94
[2018-11-17 00:17] LABS: ABG BASE EXCESS -1.6 mmol/L (-2.0-3.0); ABG HCO3 23.3 mmol/L (21.0-28.0); ABG OXYGEN SATURATION 99.1 % (95.0-99.0); ABG PCO2 40 mmHg (32-45)
[2018-11-17] MEDS: CEFAZOLIN SODIUM 1 GM VIAL IV SCH ×2 (01:11→08:57)
[2018-11-17 04:25] LABS: HEMATOCRIT 26.4 % (36-48); MEAN CORPUSCULAR HEMOGLOBIN 30.3 pg (27.0-33.0); MEAN CORPUSCULAR HGB CONC 33.1 g/dL (32.0-36.0); MEAN CORPUSCULAR VOLUME 91.7 fL (79-99); PLATELET COUNT (AUTO) 169 K/uL (130-400); RED BLOOD CELL COUNT(AUTO) 2.88 MIL/uL (4.00-5.50); RED CELL DISTRIBUTION WIDTH 16.7 % (11.0-15.5); WHITE BLOOD COUNT (AUTO) 20.8 K/uL (4.8-10.8)
[2018-11-17 04:38] LABS: CREATININE 5.7 mg/dL (0.5-1.5); MAGNESIUM 1.9 mg/dL (1.80-2.40); PHOSPHORUS 6.9 mg/dL (2.5-4.9)
[2018-11-17] MEDS: CALCIUM GLUCONATE 1 GM in SODIUM CHLORIDE 0.9% 50 ML IV PRN (04:50)
[2018-11-17 05:07] LABS: INR 1.17 (0.85-1.15); PARTIAL THROMBOPLASTIN TIME 27.4 SEC (26.3-35.5); PROTHROMBIN TIME 12.2 SEC (9.6-11.6)
[2018-11-17] MEDS: LEVOTHYROXINE 50 MCG TABLET PO SCH (05:37)
[2018-11-17] MEDS: FOLIC ACID/VITAMIN B COMP W-C 1 MG CAP/TAB PO SCH (08:57)
[2018-11-17] MEDS: SEVELAMER HCL 800 MG TABLET PO SCH ×3 (08:57→16:40)
[2018-11-17] MEDS: ASPIRIN 81 MG EC TAB PO SCH (08:58)
[2018-11-17] MEDS: FAMOTIDINE 20MG TAB 20 MG TAB PO SCH (08:58)
--- NOTE | 2018-11-17 13:17 | NUR ---
DR HERNANDEZ HERE TO SEE PATIENT UPDATED. ORDERS RECEIVED.
--- NOTE | 2018-11-17 15:26 | NUR ---
PER NURSE ATTEMPT TO STAND PATIENT AT EOB ONLY, AND THEN RETURN TO BED TO START DIALYSIS TREATMENT. BP LOW IN BED 117/64 PER MONITOR. PATIENT ABLE TO SIT EOB FOR 5-6 MINUTES WITH MIN ASSIST AND INCREASED DIZZYNESS DESPITE LE ROM/ SAQ/ ANKLE PUMPS. MONITOR SHOWS BP CONTINUES TO DROP THROUGHOUT SESSION AND PATIENT SYMPTOMATIC. 90/43 BP PER HEART MONITOR. PATIENT RETURNED TO BED. NURSE NOTIFIED THAT PATIENT WAS NOT STABLE FOR STANDING. NURSE RESPONDS THAT THE MONITOR WAS NOT ACCURATE DUE TO POSITION OF PATIENT, HOWEVER DUE TO SYMPTOMS PRESENTED BY PATIENT THIS THERAPIST ELECTS TO TERMINATE SESSION. Addendum: 11/17/18 at 1530 by DANYA MONTIEL, PT PT Amended: Links added.
[2018-11-17] MEDS ORDERED: PHARMACY COMMUNICATION MISC SCH ×2 (16:15→16:30)
[2018-11-17] MEDS: IRON SUCROSE COMPLEX 100 MG in SODIUM CHLORIDE 0.9% 50 ML IV SCH (16:20)
[2018-11-17] MEDS: LINEZOLID 600 MG/ISO-OSM 300 ML IV SCH ×2 (16:21→23:35)
[2018-11-17] MEDS: EPOETIN ALFA 10,000 UNIT/ML VIAL SQ SCH (16:21)
[2018-11-17] MEDS: DEXAMETHASONE 10MG/ML 1ML VIAL 40 MG in SODIUM CHLORIDE 0.9% 50 ML IV SCH (16:21)
[2018-11-17] MEDS: CINACALCET HCL 30 MG TAB PO SCH (16:39)
[2018-11-17] MEDS: ATORVASTATIN CALCIUM 10 MG TABLET PO SCH (20:49)
[2018-11-17] MEDS: INSULIN HUMULIN R 100 UNIT/ML 3ML SQ SCH (21:00)
[2018-11-18] VITALS (24 sets, daily range): BP systolic 91–125; BP diastolic 34–48
[2018-11-18 04:22] LABS: ALBUMIN 2.5 g/dL (3.5-5.0); BILIRUBIN,TOTAL 0.5 mg/dL (0.2-1.0); CREATININE 4.5 mg/dL (0.5-1.5); PHOSPHORUS 6.2 mg/dL (2.5-4.9); POTASSIUM 4.8 mmol/L (3.5-5.1); TOTAL PROTEIN, SERUM 6.4 g/dL (6.0-8.3)
[2018-11-18] MEDS: LEVOTHYROXINE 50 MCG TABLET PO SCH (06:30)
[2018-11-18] MEDS: INSULIN HUMULIN R 100 UNIT/ML 3ML SQ SCH ×5 (06:31→20:40)
[2018-11-18] MEDS: SEVELAMER HCL 800 MG TABLET PO SCH ×3 (08:14→17:00)
[2018-11-18] MEDS: ASPIRIN 81 MG EC TAB PO SCH (08:15)
[2018-11-18] MEDS: FOLIC ACID/VITAMIN B COMP W-C 1 MG CAP/TAB PO SCH (08:15)
[2018-11-18] MEDS: FAMOTIDINE 20MG TAB 20 MG TAB PO SCH (08:16)
[2018-11-18] MEDS: TRAMADOL HCL 50 MG TABLET PO PRN ×2 (08:16→14:13)
[2018-11-18] MEDS: IRON SUCROSE COMPLEX 100 MG in SODIUM CHLORIDE 0.9% 50 ML IV SCH (10:19)
[2018-11-18 10:59] LABS: HEMATOCRIT 24.3 % (36-48); MEAN CORPUSCULAR HEMOGLOBIN 31.1 pg (27.0-33.0); MEAN CORPUSCULAR HGB CONC 33.4 g/dL (32.0-36.0); MEAN CORPUSCULAR VOLUME 93.2 fL (79-99); NUCLEATED RED BLOOD CELLS 0.1 % (0.0-0.19); PLATELET COUNT (AUTO) 129 K/uL (130-400); RED BLOOD CELL COUNT(AUTO) 2.61 MIL/uL (4.00-5.50); RED CELL DISTRIBUTION WIDTH 17.6 % (11.0-15.5); WHITE BLOOD COUNT (AUTO) 18.7 K/uL (4.8-10.8)
--- NOTE | 2018-11-18 11:00 | NUR ---
PT WAS SAT UP IN CHAIR PER PT TECHS AND TOLERATED THE ACTIVITY.
[2018-11-18] MEDS: LINEZOLID 600 MG/ISO-OSM 300 ML IV SCH ×2 (11:37→23:21)
[2018-11-18] MEDS: EPOETIN ALFA 10,000 UNIT/ML VIAL SQ SCH (13:30)
[2018-11-18] MEDS: DEXAMETHASONE 10MG/ML 1ML VIAL 40 MG in SODIUM CHLORIDE 0.9% 50 ML IV SCH (14:00)
--- NOTE | 2018-11-18 14:23 | NUR ---
PATIENT LEFT UP TO CHAIR FOR 2 HOURS. ELIDA PT TECH PLACED PATIENT BACK IN BED AT 1330PM PER NURSE REQUEST Addendum: 11/18/18 at 1424 by DANYA MONTIEL PT PT Amended: Links added.
[2018-11-18] MEDS: CINACALCET HCL 30 MG TAB PO SCH (17:00)
[2018-11-18] MEDS: PHARMACY COMMUNICATION MISC SCH (17:30)
--- NOTE | 2018-11-18 17:30 | NUR ---
DR. LEZAMA HERE AND ADVISED OF ORDERS AND LAB RESULTS. ORDERS NOTED.
[2018-11-18] MEDS ORDERED: PHARMACY COMMUNICATION MISC SCH (18:15)
--- NOTE | 2018-11-18 19:00 | NUR ---
RECEIVED BEDSIDE REPORT,PT. IS AWAKE AND RESPONSIVE.DENIES PAIN OR ANY DISCOMFORT.PT IS ON EPINEPHRINE DRIP sbp IS LESS THAN 90'S.hr IN THE 60'S.cHEST TUBE LEVEL IS IN 1150ML.pT. APPEARS PALE. PER REPORT ,ALL MD'S ROUNDED AND AWARE OF PT. LABS AND CHEST TUBE DRAINAGE OUTPUT.pT. INSTRUCTED TO USE CALL LIGHT FOR ASSISTANCE.
[2018-11-18] MEDS: METOPROLOL TARTRATE 25 MG TAB PO SCH (20:28)
[2018-11-18] MEDS: ATORVASTATIN CALCIUM 10 MG TABLET PO SCH (20:38)
[2018-11-18] MEDS: INSULIN GLARGINE 100 UNITS/ML 10 ML VIAL SQ SCH (20:41)
[2018-11-19] VITALS (50 sets, daily range): BP systolic 91–165; BP diastolic 32–81
[2018-11-19 00:29] LABS: LYMPHOCYTES % (AUTO) 4.4 % (21.0-51.0); MEAN CORPUSCULAR HEMOGLOBIN 30.8 pg (27.0-33.0); MEAN CORPUSCULAR HGB CONC 33.2 g/dL (32.0-36.0); MEAN CORPUSCULAR VOLUME 92.7 fL (79-99); MONOCYTES % (AUTO) 5.4 % (3.0-13.0); NEUTROPHILS % (AUTO) 90.2 % (40.0-77.0); PLATELET COUNT (AUTO) 127 K/uL (130-400); RED BLOOD CELL COUNT(AUTO) 2.59 MIL/uL (4.00-5.50); RED CELL DISTRIBUTION WIDTH 17.9 % (11.0-15.5); WHITE BLOOD COUNT (AUTO) 11.5 K/uL (4.8-10.8)
[2018-11-19 00:40] LABS: CREATININE 5.3 mg/dL (0.5-1.5)
[2018-11-19 00:45] LABS: ALBUMIN 2.5 g/dL (3.5-5.0); BILIRUBIN,TOTAL 0.4 mg/dL (0.2-1.0); TOTAL PROTEIN, SERUM 6.7 g/dL (6.0-8.3)
--- NOTE | 2018-11-19 01:10 | NUR ---
called back stallion keeper for Dr. Martin,he was notified regarding pt change of mentation and [facility].Pt. at this time is responsive and following commands.Received order to start pt on Aspirin and Plavix 75mg p.o once.
[2018-11-19] MEDS: PHARMACY COMMUNICATION MISC SCH ×3 (01:30→16:38)
--- NOTE | 2018-11-19 01:48 | NUR ---
@0005 Pt. noted to be moaning with eyes open and a blank stare . pt. is unable to respond and follow commands.@0011 code stroke activated.JANAE Salgado and House superviosr was called and notified and came. was paged by [facility] waiting to call back.Pt. was sent down to CT .
--- NOTE | 2018-11-19 03:52 | NUR ---
was called and notified of elevated troponin and updated about pt. having moment of blank stare and unable to talk and was sent down for CT as part of code stroke.No new order received.
[2018-11-19] MEDS: CLOPIDOGREL BISULFATE 75 MG TAB PO SCH (04:00)
[2018-11-19 04:43] LABS: HEMATOCRIT 23.7 % (36-48); MEAN CORPUSCULAR HEMOGLOBIN 30.7 pg (27.0-33.0); MEAN CORPUSCULAR HGB CONC 32.7 g/dL (32.0-36.0); MEAN CORPUSCULAR VOLUME 94.1 fL (79-99); NUCLEATED RED BLOOD CELLS 0.1 % (0.0-0.19); PLATELET COUNT (AUTO) 114 K/uL (130-400); RED BLOOD CELL COUNT(AUTO) 2.52 MIL/uL (4.00-5.50); RED CELL DISTRIBUTION WIDTH 17.8 % (11.0-15.5); WHITE BLOOD COUNT (AUTO) 11.8 K/uL (4.8-10.8)
[2018-11-19 05:06] LABS: RETICULOCYTE % (AUTO) 4.44 % (0.42-2.23)
[2018-11-19 05:14] LABS: CREATININE 5.3 mg/dL (0.5-1.5); PHOSPHORUS 7.5 mg/dL (2.5-4.9)
[2018-11-19 05:43] LABS: % IRON SATURATION 108.4 % (22-44)
[2018-11-19] MEDS: LEVOTHYROXINE 50 MCG TABLET PO SCH (05:48)
[2018-11-19] MEDS: INSULIN GLARGINE 100 UNITS/ML 10 ML VIAL SQ SCH ×2 (05:49→21:15)
[2018-11-19] MEDS: INSULIN HUMULIN R 100 UNIT/ML 3ML SQ SCH ×4 (05:49→21:16)
--- NOTE | 2018-11-19 07:08 | NUR ---
made rounds updated with pt. condition .No new order received.
[2018-11-19] MEDS: METOPROLOL TARTRATE 25 MG TAB PO SCH ×2 (09:00→20:57)
[2018-11-19] MEDS: FAMOTIDINE 20MG TAB 20 MG TAB PO SCH (09:54)
[2018-11-19] MEDS: SEVELAMER HCL 800 MG TABLET PO SCH ×3 (09:54→16:38)
[2018-11-19] MEDS: FOLIC ACID/VITAMIN B COMP W-C 1 MG CAP/TAB PO SCH (09:54)
[2018-11-19] MEDS: ASPIRIN 81 MG EC TAB PO SCH (09:54)
[2018-11-19] MEDS: IRON SUCROSE COMPLEX 100 MG in SODIUM CHLORIDE 0.9% 50 ML IV SCH (09:55)
[2018-11-19] MEDS: LINEZOLID 600 MG/ISO-OSM 300 ML IV SCH (11:32)
--- NOTE | 2018-11-19 14:16 | NUR ---
RD Follow up Pt is POD 3 CABG. Pt is tolerating Full liquid diet at this time. RD rec to advance diet as tolerated when medically feasible. Pt with no report of GI distress. Noted LBM 11/15/18. Pt monitored labs: Na 128, Cl 91, BUN 44, Cr 5.3, GFR 9, Glu 181, P 7.5, TIBC 153, Trop I 2.55, Alb 2.5, Vit B12, 1220. RD to continue to monitor. Please notify RD as additional nutrition concerns arise. Thank you. Addendum: 11/19/18 at [address] Amended: Links added.
[2018-11-19] MEDS ORDERED: EPOETIN ALFA 10,000 UNIT/ML VIAL SQ SCH (14:17)
[2018-11-19] MEDS: CINACALCET HCL 30 MG TAB PO SCH (16:26)
[2018-11-19] MEDS: DEXAMETHASONE 10MG/ML 1ML VIAL 20 MG in SODIUM CHLORIDE 0.9% 50 ML IV SCH (16:29)
[2018-11-19] MEDS ORDERED: HEPARIN SODIUM 5000UNIT/ML 1ML VIAL IJ PRN (16:45)
[2018-11-19] MEDS ORDERED: SODIUM CHLORIDE 0.9% 1000ML 1,000 ML IV PRN (16:45)
[2018-11-19] MEDS ORDERED: NITROGLYCERIN 0.4 MG SL TAB SL PRN (16:45)
[2018-11-19] MEDS ORDERED: 0.9% SODIUM CHLORIDE 1000 ML IV BAG IV PRN (16:45)
[2018-11-19] MEDS ORDERED: ACETAMINOPHEN 325 MG TAB PO PRN (17:00)
--- NOTE | 2018-11-19 20:00 | NUR ---
ASSESSMENT AWAKE RESTING IN BED. DENIES PAIN. REMINDED TO USE IS Q1H WHILE AWAKE FOR 10 BREATHS TO PREVENT PNEUMONIA. ALSO REMINDED NOT TO USE ARMS TO PUSH OR PULL SELF WITH. REMINDED TO SUPPORT CHEST WITH PILLOW WITH DBC. ASSESSMENT COMPLETED SEE FLOW SHEET. Addendum: 11/19/18 at 2030 by XIOMARA BERUMEN RN RN Amended: Links added.
[2018-11-19] MEDS: ATORVASTATIN CALCIUM 10 MG TABLET PO SCH (21:10)
[2018-11-20] VITALS (24 sets, daily range): BP systolic 80–123; BP diastolic 36–57
[2018-11-20] MEDS: LINEZOLID 600 MG/ISO-OSM 300 ML IV SCH ×3 (00:05→23:55)
[2018-11-20] MEDS: TRAMADOL HCL 50 MG TABLET PO PRN ×3 (01:28→05:33)
[2018-11-20] MEDS: CLOPIDOGREL BISULFATE 75 MG TAB PO SCH (01:30)
[2018-11-20] MEDS: PHARMACY COMMUNICATION MISC SCH ×3 (01:30→17:08)
--- NOTE | 2018-11-20 02:00 | NUR ---
PERFORATOR OPERATOR CALL NOTED TO BE IN JUNCTIONAL RHYTHM 60 NOW. BP LOW.. SEDATION OFF FOR NOW. PERFORATOR OPERATOR CARLOS HINOJOSAPED.
--- NOTE | 2018-11-20 02:45 | NUR ---
MECHANICAL TECH CALL CARLOS LU,MECHANICAL TECH CALLS INFORMED OF JUNCTIONAL RHYTHM AND LOW BP ON PRESSORS AND ABG RESULTS. ORDERS RECEIVED AND CARRIED OUT. RT INFORMED OF INCREASE IN PEEP.
[2018-11-20 04:03] LABS: BASOPHILS % (AUTO) 0.1 % (0.0-5.0); LYMPHOCYTES % (AUTO) 5.2 % (21.0-51.0); MEAN CORPUSCULAR HEMOGLOBIN 31.6 pg (27.0-33.0); MEAN CORPUSCULAR HGB CONC 34.5 g/dL (32.0-36.0); MEAN CORPUSCULAR VOLUME 91.7 fL (79-99); MONOCYTES % (AUTO) 4.5 % (3.0-13.0); NEUTROPHILS % (AUTO) 90.2 % (40.0-77.0); NUCLEATED RED BLOOD CELLS 0.2 % (0.0-0.19); PLATELET COUNT (AUTO) 71 K/uL (130-400); RED BLOOD CELL COUNT(AUTO) 2.16 MIL/uL (4.00-5.50); RED CELL DISTRIBUTION WIDTH 17.4 % (11.0-15.5); WHITE BLOOD COUNT (AUTO) 6.2 K/uL (4.8-10.8)
[2018-11-20 04:06] LABS: HEMATOCRIT 19.8 % (36-48)
[2018-11-20 04:27] LABS: ALBUMIN 2.2 g/dL (3.5-5.0); BILIRUBIN,TOTAL 0.3 mg/dL (0.2-1.0); POTASSIUM 4.2 mmol/L (3.5-5.1); TOTAL PROTEIN, SERUM 5.8 g/dL (6.0-8.3)
[2018-11-20] MEDS: LEVOTHYROXINE 50 MCG TABLET PO SCH (05:31)
[2018-11-20] MEDS: INSULIN HUMULIN R 100 UNIT/ML 3ML SQ SCH ×4 (06:40→21:00)
[2018-11-20] MEDS: INSULIN GLARGINE 100 UNITS/ML 10 ML VIAL SQ SCH ×2 (06:54→21:00)
[2018-11-20] MEDS ORDERED: MIDODRINE HCL 5 MG TABLET PO SCH ×2 (08:30→14:00)
[2018-11-20] MEDS: IRON SUCROSE COMPLEX 100 MG in SODIUM CHLORIDE 0.9% 50 ML IV SCH (08:50)
[2018-11-20] MEDS: SEVELAMER HCL 800 MG TABLET PO SCH ×3 (08:51→17:08)
[2018-11-20] MEDS: FAMOTIDINE 20MG TAB 20 MG TAB PO SCH (08:51)
[2018-11-20] MEDS: FOLIC ACID/VITAMIN B COMP W-C 1 MG CAP/TAB PO SCH (08:51)
[2018-11-20] MEDS: ASPIRIN 81 MG EC TAB PO SCH (08:51)
[2018-11-20] MEDS: METOPROLOL TARTRATE 25 MG TAB PO SCH (09:00)
[2018-11-20] MEDS: MIDODRINE HCL 5 MG TABLET PO SCH ×2 (13:05→21:36)
[2018-11-20] MEDS: DEXAMETHASONE 10MG/ML 1ML VIAL 20 MG in SODIUM CHLORIDE 0.9% 50 ML IV SCH (13:06)
[2018-11-20] MEDS ORDERED: DiphenhydrAMINE HCL 50 MG/ML VIAL IV SCH (13:40)
[2018-11-20] MEDS: CINACALCET HCL 30 MG TAB PO SCH (17:08)
--- NOTE | 2018-11-20 20:00 | NUR ---
ASSESSMENT RESTING IN CARDIAC CHAIR. DENIES PAIN. USES PILLOW TO SPLINT CHEST WITH DBC. USES IS Q1H FOR 10 BREATHS WHILE AWAKE. ASSESSMENT COMPLETED SEE FLOW SHEET. ENCOURAGED TO CALL FOR WANTS OR NEEDS. Addendum: 11/20/18 at 2016 by XIOMARA BERUMEN RN RN Amended: Links added.
[2018-11-20] MEDS: ATORVASTATIN CALCIUM 10 MG TABLET PO SCH (21:36)
[2018-11-21] VITALS (25 sets, daily range): BP systolic 92–142; BP diastolic 28–55
[2018-11-21] MEDS: CLOPIDOGREL BISULFATE 75 MG TAB PO SCH (01:30)
[2018-11-21] MEDS: PHARMACY COMMUNICATION MISC SCH ×3 (01:30→16:40)
[2018-11-21 04:13] LABS: ALBUMIN 2.3 g/dL (3.5-5.0); BILIRUBIN,TOTAL 0.4 mg/dL (0.2-1.0); CREATININE 4.9 mg/dL (0.5-1.5); MAGNESIUM 1.9 mg/dL (1.80-2.40); POTASSIUM 4.7 mmol/L (3.5-5.1); TOTAL PROTEIN, SERUM 5.8 g/dL (6.0-8.3); URIC ACID 4.6 mg/dL (2.6-7.2)
[2018-11-21 04:16] LABS: BASOPHILS % (AUTO) 0.1 % (0.0-5.0); HEMATOCRIT 21.9 % (36-48); LYMPHOCYTES % (AUTO) 3.2 % (21.0-51.0); MEAN CORPUSCULAR HEMOGLOBIN 31.1 pg (27.0-33.0); MEAN CORPUSCULAR HGB CONC 33.3 g/dL (32.0-36.0); MEAN CORPUSCULAR VOLUME 93.3 fL (79-99); MONOCYTES % (AUTO) 3.1 % (3.0-13.0); NEUTROPHILS % (AUTO) 93.6 % (40.0-77.0); NUCLEATED RED BLOOD CELLS 0.2 % (0.0-0.19); PLATELET COUNT (AUTO) 94 K/uL (130-400); RED BLOOD CELL COUNT(AUTO) 2.34 MIL/uL (4.00-5.50); RED CELL DISTRIBUTION WIDTH 17.8 % (11.0-15.5); WHITE BLOOD COUNT (AUTO) 13.3 K/uL (4.8-10.8)
[2018-11-21] MEDS: MIDODRINE HCL 5 MG TABLET PO SCH ×3 (06:00→21:12)
[2018-11-21] MEDS: INSULIN HUMULIN R 100 UNIT/ML 3ML SQ SCH ×4 (06:05→21:00)
[2018-11-21] MEDS: INSULIN GLARGINE 100 UNITS/ML 10 ML VIAL SQ SCH ×2 (06:06→21:00)
[2018-11-21] MEDS: LEVOTHYROXINE 50 MCG TABLET PO SCH (06:30)
[2018-11-21] MEDS: PANTOPRAZOLE SODIUM 40 MG TABLET.DR PO SCH (06:50)
[2018-11-21] MEDS: SEVELAMER HCL 800 MG TABLET PO SCH ×3 (08:44→16:39)
[2018-11-21] MEDS: FOLIC ACID/VITAMIN B COMP W-C 1 MG CAP/TAB PO SCH (08:44)
[2018-11-21] MEDS: ASPIRIN 81 MG EC TAB PO SCH (08:45)
[2018-11-21] MEDS: IRON SUCROSE COMPLEX 100 MG in SODIUM CHLORIDE 0.9% 50 ML IV SCH (08:52)
[2018-11-21 11:04] LABS: ABG BASE EXCESS 0.9 mmol/L (-2.0-3.0); ABG HCO3 25.2 mmol/L (21.0-28.0); ABG PCO2 39 mmHg (32-45)
[2018-11-21] MEDS: LINEZOLID 600 MG/ISO-OSM 300 ML IV SCH (11:42)
[2018-11-21] MEDS: DEXAMETHASONE 10MG/ML 1ML VIAL 20 MG in SODIUM CHLORIDE 0.9% 50 ML IV SCH (14:52)
[2018-11-21] MEDS: CINACALCET HCL 30 MG TAB PO SCH (16:40)
[2018-11-21] MEDS: EPOETIN ALFA 10,000 UNIT/ML VIAL SQ SCH (19:25)
--- NOTE | 2018-11-21 20:30 | NUR ---
ASSESSMENT PT RESTING IN BED. FAMILY/VISITORS AT BEDSIDE. CURRENTLY DENIES ANY PAIN BUT MOANS WITH TACTILE STIMULATION. ASSESSMENT COMPLETED, SEE FLOW SHEET. WHITE BOARD UP-DATED. CALLBELL REVIEWED AND WITHIN REACH.
[2018-11-21] MEDS: ATORVASTATIN CALCIUM 10 MG TABLET PO SCH (21:05)
--- NOTE | 2018-11-21 21:07 | NUR ---
LANTUS LANTUS HELD. PT C/O POOR APPETITE DURING THE DAY. SEE E.MAR FOR D50 GIVEN
[2018-11-22] VITALS (37 sets, daily range): BP systolic 73–150; BP diastolic 26–68
--- NOTE | 2018-11-22 | NUR ---
ASSESSMENT PT RESTING IN BED. CURRENTLY DENIES ANY PAIN BUT MOANS WITH TACTILE STIMULATION, TEARFUL AT TIMES. ASSESSMENT COMPLETED, SEE FLOW SHEET. WHITE BOARD UP-DATED. CALLBELL WITHIN REACH.
[2018-11-22] MEDS: CLOPIDOGREL BISULFATE 75 MG TAB PO SCH (01:30)
[2018-11-22] MEDS: PHARMACY COMMUNICATION MISC SCH ×2 (01:30→09:07)
--- NOTE | 2018-11-22 03:00 | NUR ---
ASSESSMENT PT RESTING IN BED. CURRENTLY DENIES ANY PAIN BUT MOANS WITH TACTILE STIMULATION, TEARFUL AT TIMES. ASSESSMENT COMPLETED, SEE FLOW SHEET. CALLBELL WITHIN REACH.
[2018-11-22 03:56] LABS: BASOPHILS % (AUTO) 0.1 % (0.0-5.0); HEMATOCRIT 22.6 % (36-48); LYMPHOCYTES % (AUTO) 2.3 % (21.0-51.0); MEAN CORPUSCULAR HGB CONC 33.9 g/dL (32.0-36.0); MEAN CORPUSCULAR VOLUME 91.4 fL (79-99); MONOCYTES % (AUTO) 1.8 % (3.0-13.0); NEUTROPHILS % (AUTO) 95.8 % (40.0-77.0); NUCLEATED RED BLOOD CELLS 0.4 % (0.0-0.19); PLATELET COUNT (AUTO) 101 K/uL (130-400); RED BLOOD CELL COUNT(AUTO) 2.48 MIL/uL (4.00-5.50); RED CELL DISTRIBUTION WIDTH 17.6 % (11.0-15.5); WHITE BLOOD COUNT (AUTO) 13.5 K/uL (4.8-10.8)
[2018-11-22 04:14] LABS: ALBUMIN 2.3 g/dL (3.5-5.0); BILIRUBIN,TOTAL 0.5 mg/dL (0.2-1.0); CREATININE 3.9 mg/dL (0.5-1.5); MAGNESIUM 2.1 mg/dL (1.80-2.40); PHOSPHORUS 5.2 mg/dL (2.5-4.9); POTASSIUM 4.3 mmol/L (3.5-5.1); TOTAL PROTEIN, SERUM 5.7 g/dL (6.0-8.3)
[2018-11-22] MEDS: INSULIN GLARGINE 100 UNITS/ML 10 ML VIAL SQ SCH ×2 (06:40→21:00)
[2018-11-22] MEDS: INSULIN HUMULIN R 100 UNIT/ML 3ML SQ SCH ×4 (06:40→21:00)
[2018-11-22] MEDS: PANTOPRAZOLE SODIUM 40 MG TABLET.DR PO SCH (06:50)
[2018-11-22] MEDS: MIDODRINE HCL 5 MG TABLET PO SCH ×3 (06:50→21:03)
[2018-11-22] MEDS: LEVOTHYROXINE 50 MCG TABLET PO SCH (06:50)
--- NOTE | 2018-11-22 07:24 | NUR ---
REPORT BEDSIDE REPORT GIVEN TO DIYA DURAN
--- NOTE | 2018-11-22 08:10 | NUR ---
AAOX2, UNLABORED RESPIRATIONS NOTED, NOTED WITH CORDIS CATHETER COMPLETELY DISLODGED, CATHETER INTACT, STILL ATTACHED WITH SUTURES IN PLACE, APPLIED PRESSURE TO SITE, REMOVED SUTURES. ADMITTED PULLING CORDIS OUT HERSELF, STATED HAVING NO REASON TO PULL IT OUT. SPOKE TO RENEE GONZALEZ NURSE FOR DR FERNANDEZ AND NOTIFIED ABOUT PATIENT PULLING CORDIS OUT. WILL CONTINUE TO MONITOR.
[2018-11-22] MEDS: FOLIC ACID/VITAMIN B COMP W-C 1 MG CAP/TAB PO SCH (08:44)
[2018-11-22] MEDS: SEVELAMER HCL 800 MG TABLET PO SCH ×3 (08:44→17:32)
[2018-11-22] MEDS: IRON SUCROSE COMPLEX 100 MG in SODIUM CHLORIDE 0.9% 50 ML IV SCH (08:44)
[2018-11-22] MEDS: ASPIRIN 81 MG EC TAB PO SCH (08:44)
--- NOTE | 2018-11-22 10:15 | NUR ---
DISCONTINUED STACI. CHEST TUBES, ORDERED PER MD, CATHETERS INTACT, APPLIED PETROLEUM GAUZES TO SITE, COVERED WITH 4X4 GAUZES, AND SECURED WITH HYPAFIX.
--- NOTE | 2018-11-22 10:20 | NUR ---
DISCONTINUED A-LINE TO RIGHT RADIAL, ORDERED PER MD, CATHETER INTACT, APPLIED PRESSURE TO SITE, COVERED WITH 4X4 GAUZE, AND SECURED WITH HYPAFIX.
[2018-11-22] MEDS: DEXAMETHASONE 10MG/ML 1ML VIAL 20 MG in SODIUM CHLORIDE 0.9% 50 ML IV SCH (13:31)
[2018-11-22 15:22] LABS: INR 1.94 (0.85-1.15); PROTHROMBIN TIME 20.1 SEC (9.6-11.6)
--- NOTE | 2018-11-22 16:55 | NUR ---
PT NOTED TO HAVE DISCOLORATION ON LEFT HAND WHERE A-V FISTULA IS, AND DIALYSIS IS STILL USED FROM THIS EXTREMITY. PT WAS REPORTED TO BE DISORIENTED AND PULLED OUT THE JUGULAR ACCESS THAT WAS PREVIOUSLY ON LEFT IJ. SPOKE TO MEDIA RELATIONS MANAGER DR. HERNANDEZ. STATED THAT HE PREFERRED PICC LINE NOT BE PLACED ON RIGHT ARM, IN CASE IT IS LATER NEEDED FOR AV FISTULA ACCESS. DR. HERNANDEZ ASKED IF DR. DOZIER WOULD BE ABLE TO REPLACE A CENTRAL LINE INSTEAD. PHONE CALL MADE ALSO TO DR. DOZIER TO REPORT FINDINGS AND DR. HERNANDEZ'S REQUEST. DR. DOZIER STATES THAT SINCE PT IS NOT CURRENTLY ON PRESSURE DRIPS, A REGULAR PERIPHERAL IV WILL SUFFICE. CANCELL ORDER FOR PICC. BIOLOGICAL TECHNICIAN NOTIFIED. 20 GA IV STARTED TO RIGHT FOREARM, WITH ULTRASOUND GUIDANCE, INSERTED USING ASEPTIC TECHNIQUE. IV FLUSHED AND STERILE DRESSING APPLIED.
[2018-11-22] MEDS: CINACALCET HCL 30 MG TAB PO SCH (17:31)
--- NOTE | 2018-11-22 18:00 | NUR ---
SALINE LOCK TO RT HAND DUE TO BE REMOVED, DISCONTINUED CATHETER INTACT, APPLIED PRESSURE TO SITE, COVERED WITH 2X2 GAUZE, AND SECURED WITH TAPE
[2018-11-22] MEDS: ATORVASTATIN CALCIUM 10 MG TABLET PO SCH (21:03)
[2018-11-23] VITALS (24 sets, daily range): BP systolic 105–173; BP diastolic 41–70
[2018-11-23] MEDS: CLOPIDOGREL BISULFATE 75 MG TAB PO SCH ×2 (01:07→23:49)
[2018-11-23] MEDS: PANTOPRAZOLE SODIUM 40 MG TABLET.DR PO SCH (06:10)
[2018-11-23] MEDS: LEVOTHYROXINE 75 MCG TABLET PO SCH (06:11)
[2018-11-23] MEDS: INSULIN HUMULIN R 100 UNIT/ML 3ML SQ SCH ×4 (06:11→21:00)
[2018-11-23] MEDS: INSULIN GLARGINE 100 UNITS/ML 10 ML VIAL SQ SCH ×2 (07:30→21:00)
--- NOTE | 2018-11-23 07:45 | NUR ---
ASSESSMENT ENCOUNTERED PT ASLEEP BUT AROUSEABLE, A&OX4 BUT FORGETFUL, CALM COOPERATIVE AND DOES NOT APPEAR TO BE IN ANY DISTRESS NOR ANY NEURO DEFICITS PRESENT. PT DENIES PAIN, SOB, NAUSEA BUT DOES C/O GENERALIZED BODY WEAKNESS. LEFT ARM DIALYSIS ACCESS WITH BRUIT/THRILL PRESENT. PT STATES SHE CONTINUES TO HAVE POOR APPETITE AND UNABLE TO AMBULATE. INCENTIVE SPIROMETRY AVERAGING LESS THAN 500ML AVERAGE PER ATTEMPT. PATIENT ENCOURAGED TO INCREASE FREQUENCY OF INCENTIVE SPIROMETER TO Q30 MINUTES. PT IS PENDING HEMODIALYSIS. CALL LIGHT WITHIN REACH, FAMILY AT BEDSIDE.
[2018-11-23] MEDS: SEVELAMER HCL 800 MG TABLET PO SCH ×3 (08:00→17:00)
[2018-11-23] MEDS: FOLIC ACID/VITAMIN B COMP W-C 1 MG CAP/TAB PO SCH (09:00)
[2018-11-23] MEDS: ASPIRIN 81 MG EC TAB PO SCH (09:00)
[2018-11-23] MEDS: CINACALCET HCL 30 MG TAB PO SCH (17:00)
--- NOTE | 2018-11-23 18:00 | NUR ---
CM note discussed with dr giordano, options for [facility] vs acute IP rehab. per Dr Giordano prefers [facility] instead due to pt's multiple needs, steroids, and oncology to see. will followup with referral.
[2018-11-23] MEDS: MIDODRINE HCL 5 MG TABLET PO SCH ×2 (18:16→21:49)
[2018-11-23] MEDS: TRAMADOL HCL 50 MG TABLET PO PRN (21:48)
[2018-11-23] MEDS: ATORVASTATIN CALCIUM 10 MG TABLET PO SCH (21:50)
[2018-11-23] MEDS: IRON SUCROSE COMPLEX 100 MG in SODIUM CHLORIDE 0.9% 50 ML IV SCH (21:57)
[2018-11-23] MEDS: DEXAMETHASONE 10MG/ML 1ML VIAL 20 MG in SODIUM CHLORIDE 0.9% 50 ML IV SCH (22:03)
[2018-11-24 03:45] LABS: HEMATOCRIT 25.5 % (36-48); MEAN CORPUSCULAR HEMOGLOBIN 30.2 pg (27.0-33.0); MEAN CORPUSCULAR VOLUME 91.5 fL (79-99); NUCLEATED RED BLOOD CELLS 0.1 % (0.0-0.19); PLATELET COUNT (AUTO) 38 K/uL (130-400); RED BLOOD CELL COUNT(AUTO) 2.79 MIL/uL (4.00-5.50); RED CELL DISTRIBUTION WIDTH 17.7 % (11.0-15.5); WHITE BLOOD COUNT (AUTO) 14.8 K/uL (4.8-10.8)
[2018-11-24 03:49] LABS: CREATININE 3.5 mg/dL (0.5-1.5); PHOSPHORUS 5.2 mg/dL (2.5-4.9); POTASSIUM 4.5 mmol/L (3.5-5.1)
[2018-11-24 04:49] VITALS: BP 109/56
[2018-11-24] MEDS: INSULIN HUMULIN R 100 UNIT/ML 3ML SQ SCH ×5 (06:23→21:00)
[2018-11-24] MEDS: MIDODRINE HCL 5 MG TABLET PO SCH ×3 (06:35→21:17)
[2018-11-24] MEDS: PANTOPRAZOLE SODIUM 40 MG TABLET.DR PO SCH (06:35)
[2018-11-24] MEDS: LEVOTHYROXINE 75 MCG TABLET PO SCH (06:35)
[2018-11-24] MEDS: INSULIN GLARGINE 100 UNITS/ML 10 ML VIAL SQ SCH ×2 (07:02→21:20)
[2018-11-24 07:52] VITALS: BP 132/60
[2018-11-24] MEDS: SEVELAMER HCL 800 MG TABLET PO SCH ×3 (08:00→16:49)
[2018-11-24] MEDS: ASPIRIN 81 MG EC TAB PO SCH (09:00)
[2018-11-24] MEDS: FOLIC ACID/VITAMIN B COMP W-C 1 MG CAP/TAB PO SCH (10:54)
[2018-11-24 11:44] VITALS: BP 132/62
[2018-11-24] MEDS: EPOETIN ALFA 10,000 UNIT/ML VIAL SQ SCH (13:56)
[2018-11-24 15:48] VITALS: BP 143/94
[2018-11-24] MEDS: CINACALCET HCL 30 MG TAB PO SCH (16:49)
[2018-11-24 19:32] VITALS: BP 118/60
[2018-11-24] MEDS: DEXAMETHASONE 10MG/ML 1ML VIAL 20 MG in SODIUM CHLORIDE 0.9% 50 ML IV SCH (21:17)
[2018-11-24] MEDS: IRON SUCROSE COMPLEX 100 MG in SODIUM CHLORIDE 0.9% 50 ML IV SCH (21:17)
[2018-11-24] MEDS: ATORVASTATIN CALCIUM 10 MG TABLET PO SCH (21:17)
[2018-11-24 23:44] VITALS: BP 123/68
[2018-11-25 04:35] VITALS: BP 148/68
[2018-11-25] MEDS: INSULIN HUMULIN R 100 UNIT/ML 3ML SQ SCH ×4 (05:41→21:00)
[2018-11-25] MEDS: MIDODRINE HCL 5 MG TABLET PO SCH ×3 (06:01→21:34)
[2018-11-25] MEDS: PANTOPRAZOLE SODIUM 40 MG TABLET.DR PO SCH (06:01)
[2018-11-25] MEDS: LEVOTHYROXINE 75 MCG TABLET PO SCH (06:01)
[2018-11-25] MEDS: INSULIN GLARGINE 100 UNITS/ML 10 ML VIAL SQ SCH ×2 (06:22→21:40)
[2018-11-25 07:44] VITALS: BP 142/64
[2018-11-25] MEDS: SEVELAMER HCL 800 MG TABLET PO SCH ×3 (09:00→16:33)
[2018-11-25] MEDS: ASPIRIN 81 MG EC TAB PO SCH (09:00)
[2018-11-25] MEDS: FOLIC ACID/VITAMIN B COMP W-C 1 MG CAP/TAB PO SCH (09:00)
[2018-11-25 11:52] VITALS: BP 138/59
--- NOTE | 2018-11-25 12:00 | NUR ---
DR. FERNANDEZ IS IN TO SEE PATIENT. SHE IS PENDING [facility] APPROVAL. INFORMED MD THAT PATIENT HAS NOT HAD HER ASPIRIN IN DAYS AND HE SAID THAT IT IS OK.
[2018-11-25 14:28] LABS: CREATININE 5.2 mg/dL (0.5-1.5)
[2018-11-25 14:32] LABS: MEAN CORPUSCULAR HEMOGLOBIN 31.2 pg (27.0-33.0); MEAN CORPUSCULAR HGB CONC 33.6 g/dL (32.0-36.0); MEAN CORPUSCULAR VOLUME 92.9 fL (79-99); NUCLEATED RED BLOOD CELLS 0.5 % (0.0-0.19); PLATELET COUNT (AUTO) 33 K/uL (130-400); RED BLOOD CELL COUNT(AUTO) 2.37 MIL/uL (4.00-5.50); RED CELL DISTRIBUTION WIDTH 17.4 % (11.0-15.5); WHITE BLOOD COUNT (AUTO) 9.6 K/uL (4.8-10.8)
[2018-11-25 14:49] LABS: BAND NEUTROPHILS % (MANUAL) 1 % (0-2); LYMPHOCYTES % (MANUAL) 9 % (22-44); MONOCYTES % (MANUAL) 3 % (2-9); PLATELET MORPHOLOGY COMMENT MARKED DECREASE; SEGMENTED NEUTROPHILS % 87 % (40-70)
[2018-11-25 15:46] VITALS: BP 102/69
[2018-11-25] MEDS: CINACALCET HCL 30 MG TAB PO SCH (16:33)
[2018-11-25 19:47] VITALS: BP 134/51
[2018-11-25] MEDS: DEXAMETHASONE 10MG/ML 1ML VIAL 20 MG in SODIUM CHLORIDE 0.9% 50 ML IV SCH (21:00)
[2018-11-25] MEDS: IRON SUCROSE COMPLEX 100 MG in SODIUM CHLORIDE 0.9% 50 ML IV SCH (21:00)
[2018-11-25] MEDS: ATORVASTATIN CALCIUM 10 MG TABLET PO SCH (21:33)
[2018-11-26 00:28] VITALS: BP 105/55
[2018-11-26 04:30] VITALS: BP 108/54
[2018-11-26 04:51] LABS: HEMATOCRIT 21.3 % (36-48); MEAN CORPUSCULAR HEMOGLOBIN 30.8 pg (27.0-33.0); MEAN CORPUSCULAR HGB CONC 33.4 g/dL (32.0-36.0); NUCLEATED RED BLOOD CELLS 0.3 % (0.0-0.19); PLATELET COUNT (AUTO) 32 K/uL (130-400); RED BLOOD CELL COUNT(AUTO) 2.32 MIL/uL (4.00-5.50); RED CELL DISTRIBUTION WIDTH 17.7 % (11.0-15.5); WHITE BLOOD COUNT (AUTO) 13.2 K/uL (4.8-10.8)
[2018-11-26 04:57] LABS: CREATININE 5.8 mg/dL (0.5-1.5); MAGNESIUM 2.1 mg/dL (1.80-2.40); PHOSPHORUS 5.4 mg/dL (2.5-4.9); POTASSIUM 4.9 mmol/L (3.5-5.1)
[2018-11-26 05:14] LABS: BAND NEUTROPHILS % (MANUAL) 1 % (0-2); LYMPHOCYTES % (MANUAL) 4 % (22-44); MAN.DIFF COMMENT-IMPRESSION MANUAL DIFFERENTIAL; MONOCYTES % (MANUAL) 8 % (2-9); SEGMENTED NEUTROPHILS % 87 % (40-70)
[2018-11-26 05:16] LABS: PLATELET MORPHOLOGY COMMENT MARKED DECREASE
[2018-11-26] MEDS: MIDODRINE HCL 5 MG TABLET PO SCH ×2 (05:29→12:19)
[2018-11-26] MEDS: LEVOTHYROXINE 75 MCG TABLET PO SCH (05:30)
[2018-11-26] MEDS: PANTOPRAZOLE SODIUM 40 MG TABLET.DR PO SCH (05:30)
[2018-11-26] MEDS: INSULIN HUMULIN R 100 UNIT/ML 3ML SQ SCH ×3 (06:17→16:30)
[2018-11-26] MEDS: INSULIN GLARGINE 100 UNITS/ML 10 ML VIAL SQ SCH (06:30)
[2018-11-26 08:08] VITALS: BP 103/53
[2018-11-26] MEDS: FOLIC ACID/VITAMIN B COMP W-C 1 MG CAP/TAB PO SCH (08:51)
[2018-11-26] MEDS: SEVELAMER HCL 800 MG TABLET PO SCH ×3 (08:51→16:48)
[2018-11-26] MEDS: ASPIRIN 81 MG EC TAB PO SCH (08:51)
--- NOTE | 2018-11-26 11:00 | NUR ---
ROUNDS DR. MANNING IN TO SEE PATIENT.
[2018-11-26 12:00] VITALS: BP 103/47
--- NOTE | 2018-11-26 13:27 | NUR ---
MD ROUNDS DR. HERNANDEZ IN TO SEE PATIENT.
[2018-11-26 16:33] VITALS: BP 102/49
--- NOTE | 2018-11-26 16:58 | NUR ---
DC PLAN INFORMED OF ACCEPTANCE AND MOT INFO GIVEN AT 1630. MOT FILLED AND SIGNED. EMS FILLED. PER [facility] IF NOT COVERED THEY WILL COVER WANTS PATIENT TO GO VIA EMS. PATIENT IS DEBILITATED AND BARELY DID TRANSITION FROM BED TO CHAIR. DID NOT TOLERATE LONG PERIOD. Addendum: 11/26/18 at 1703 by ERENDIRA MENJIVAR RN CM Amended: Links added.
--- NOTE | 2018-11-26 17:02 | NUR ---
RD Follow up Pt tolerating 75gm, Dialysis diet. Pt LBM 11/24/18. Pt monitored labs: Na 134, Cl 97, BUN 68, Cr 5.8, Glu 139, Ca 7.9, P 5.4, Alb 2.3. Fair appetite (75%). RD updated food preferences. No other nutrition concerns at this time. RD to continue to monitor. Addendum: 11/26/18 at [address] Amended: Links added.
[2018-11-26] MEDS: EPOETIN ALFA 10,000 UNIT/ML VIAL SQ SCH (17:04)
[2018-11-26] MEDS: CINACALCET HCL 30 MG TAB PO SCH (17:04)
--- NOTE | 2018-11-26 18:13 | NUR ---
REPORT CALLED TO JAY, SPOKE WITH RAVINDAR MARIN. EMS CALLED AT 1806.
--- NOTE | 2018-11-26 18:30 | NUR ---
MD ROUNDS DR. VALADEZ IN TO SEE PATIENT. UPDATED ON TRANSFER TO [facility]
--- NOTE | 2018-11-26 18:49 | NUR ---
EMS HERE FOR PATIENT TO BE TRANSFERRED TO [facility]. SPOUSE ACCOMPANYING PATIENT. ALL DISCHARGE INSTRUCTIONS GIVEN TO SPOUSE.
== END 2018-11-26 16:55 | DRG 233 ==
LOC: EDH 14:48 → EDHIP 18:54 → OBSVTOIN 18:54 → 2AH 23:30 → 2CV 11-16 07:49 → 2BH 11-17 05:25 → 2AH 11-23 17:34
PROVIDERS: ADMIT Internal Medicine; ATTEND Internal Medicine
PROC: 5A1D70Z Performance of Urinary Filtration, Intermittent, Less than 6 Hours Per Day (ICD-10-PCS; 2018-11-12)
PROC: B2111ZZ Fluoroscopy of Multiple Coronary Arteries using Low Osmolar Contrast (ICD-10-PCS; 2018-11-13)
PROC: 4A023N7 Measurement of Cardiac Sampling and Pressure, Left Heart, Percutaneous Approach (ICD-10-PCS; 2018-11-13)
PROC: B2151ZZ Fluoroscopy of Left Heart using Low Osmolar Contrast (ICD-10-PCS; 2018-11-13)
PROC: 5A1D70Z Performance of Urinary Filtration, Intermittent, Less than 6 Hours Per Day (ICD-10-PCS; 2018-11-13)
PROC: 5A1D70Z Performance of Urinary Filtration, Intermittent, Less than 6 Hours Per Day (ICD-10-PCS; 2018-11-15)
PROC: 021209W Bypass Coronary Artery, Three Arteries from Aorta with Autologous Venous Tissue, Open Approach (ICD-10-PCS; 2018-11-16)
PROC: 02100Z9 Bypass Coronary Artery, One Artery from Left Internal Mammary, Open Approach (ICD-10-PCS; 2018-11-16)
PROC: 06BQ4ZZ Excision of Left Saphenous Vein, Percutaneous Endoscopic Approach (ICD-10-PCS; 2018-11-16)
PROC: 5A1221Z Performance of Cardiac Output, Continuous (ICD-10-PCS; 2018-11-16)
PROC: 06BP4ZZ Excision of Right Saphenous Vein, Percutaneous Endoscopic Approach (ICD-10-PCS; principal; 2018-11-16 08:00)
PROC: 5A1D70Z Performance of Urinary Filtration, Intermittent, Less than 6 Hours Per Day (ICD-10-PCS; 2018-11-17)
PROC: 5A1D70Z Performance of Urinary Filtration, Intermittent, Less than 6 Hours Per Day (ICD-10-PCS; 2018-11-19)
PROC: 5A1D70Z Performance of Urinary Filtration, Intermittent, Less than 6 Hours Per Day (ICD-10-PCS; 2018-11-21)
PROC: 5A1D70Z Performance of Urinary Filtration, Intermittent, Less than 6 Hours Per Day (ICD-10-PCS; 2018-11-23)
PROC: 5A1D70Z Performance of Urinary Filtration, Intermittent, Less than 6 Hours Per Day (ICD-10-PCS; 2018-11-26)
DX: T82.855A Stenosis of coronary artery stent, initial encounter (principal); I21.4 Non-ST elevation (NSTEMI) myocardial infarction; N18.6 End stage renal disease; I50.43 Acute on chronic combined systolic (congestive) and diastolic (congestive) heart failure; A41.9 Sepsis, unspecified organism; D61.818 Other pancytopenia; E44.0 Moderate protein-calorie malnutrition; I45.2 Bifascicular block; I13.2 Hypertensive heart and chronic kidney disease with heart failure and with stage 5 chronic kidney disease, or end stage renal disease; D59.1 Other autoimmune hemolytic anemias; D62 Acute posthemorrhagic anemia; D69.3 Immune thrombocytopenic purpura; L03.115 Cellulitis of right lower limb; L02.415 Cutaneous abscess of right lower limb; I25.10 Atherosclerotic heart disease of native coronary artery without angina pectoris; Z99.2 Dependence on renal dialysis; D63.1 Anemia in chronic kidney disease; D69.59 Other secondary thrombocytopenia; E03.9 Hypothyroidism, unspecified; E11.22 Type 2 diabetes mellitus with diabetic chronic kidney disease; E11.51 Type 2 diabetes mellitus with diabetic peripheral angiopathy without gangrene; E11.65 Type 2 diabetes mellitus with hyperglycemia; E66.3 Overweight; E78.5 Hyperlipidemia, unspecified; I25.119 Atherosclerotic heart disease of native coronary artery with unspecified angina pectoris; I25.5 Ischemic cardiomyopathy; I34.0 Nonrheumatic mitral (valve) insufficiency; T38.0X5A Adverse effect of glucocorticoids and synthetic analogues, initial encounter; Y92.239 Unspecified place in hospital as the place of occurrence of the external cause; R62.7 Adult failure to thrive; Y83.1 Surgical operation with implant of artificial internal device as the cause of abnormal reaction of the patient, or of later complication, without mention of misadventure at the time of the procedure; Z79.4 Long term (current) use of insulin; Z79.82 Long term (current) use of aspirin; Z79.899 Other long term (current) drug therapy; Z82.3 Family history of stroke; Z82.49 Family history of ischemic heart disease and other diseases of the circulatory system; Z82.5 Family history of asthma and other chronic lower respiratory diseases; Z83.3 Family history of diabetes mellitus; Z91.11 Patient's noncompliance with dietary regimen; Z91.19 Patient's noncompliance with other medical treatment and regimen; Z68.39 Body mass index [BMI] 39.0-39.9, adult
CPT/HCPCS: 36415; 70460; 71045; 80048; 80053; 80061; 80074; 82040; 82330; 82435; 82607; 82728; 82803; 82947; 82948; 83036; 83540; 83550; 83605; 83690; 83735; 83880; 84100; 84132; 84295; 84443; 84484; 84550; 85018; 85025; 85027; 85347; 85610; 85730; 86850; 86870; 86880; 86900; 86901; 86902; 86905; 86906; 86922; 90935; 93005; 93306; 93308; 93458; 93880; 94002; 94010; 97039; 99156; 99157; A7048; C1760; C1894; G0378; J0171; J0282; J0330; J0610; J0690; J0885; J1100; J1327; J1644; J1756; J1815; J2001; J2020; J2250; J2405; J2440; J2704; J2710; J2720; J3010; J3490; J7030; J7040; J7070; J7120; Q9967